=== PATIENT | male | born 1950 | race Caucasian/White ===

== ENCOUNTER 2019-11-06 06:36 | Outpatient (CLI) | payer MEDICARE, SELFPAY ==
--- NOTE | ~2019-11-06 | CT_ITS ---
EXAMINATION: CT chest wo con EXAM DATE: 11/06/2019 08:10 INDICATION: Lung nodule. TECHNIQUE: Spiral CT of the chest without contrast. Axial, coronal and sagittal images were reviewe d. Coronal maximum intensity pixel images of chest reviewed. The dose-length product (DLP) for this examination was 128.67 mGy-cm. The exposure was tailored according to patient size (auto mA exposur e control), and iterative reconstruction (ASIR) was used as additional dose reduction technique. Comp arison is made to prior examination from 10/25/2018. FINDINGS: There are 2 small nodules in the right lung, both demonstrating faint calcification consis tent with granulomas, are unchanged in size, larger measuring 6 mm. These are granulomas. There is mi ld to moderate emphysema. There are no pleural or pericardial effusions. Tracheobronchial tree is patent. There is no mediastinal, hilar or axillary lymphadenopathy. There is no pneumothorax. H eart normal in size. No evidence of coronary arterial calcification. There is 2 mm left nephrolithi asis. Upper abdomen is unremarkable. There is thoracic spondylosis without osteoblastic or osteoly tic lesions identified. Scattered splenic flexure diverticulosis. IMPRESSION: 1. Right lung granulomata unchanged. 2. Punctate left nephrolithiasis. RECOMMENDATION: screening patient and if qualifies, ordering follow-up chest LDCT lung cancer screeni ng exam in one year. Reviewed, dictated and finalized at location B. MTABLE WORKER IMPRESSION: 1. Right lung granulomata unchanged. 2. Punctate left nephrolithiasis. RECOMMENDATION: screening patient and if qualifies, ordering follow-up chest LD CT lung cancer screening exam in one year.
== END 2019-11-06 06:37 | disposition home or self-care (01) ==
PROVIDERS: PCP Internal Medicine; Visit Provider Internal Medicine
DX: R91.1 Solitary pulmonary nodule (principal); N20.0 Calculus of kidney
CPT/HCPCS: 71250

== ENCOUNTER 2019-12-04 00:30 | Day surgery (SDC) | payer MEDICARE, SELFPAY ==
[2019-11-27 14:48] VITALS: BMI 26.2
[2019-12-04 08:56] VITALS: BP 159/81; PULSE 73; RESP 16; TEMP 36.8; O2SAT 97; BMI 28.1
[2019-12-04] MEDS: LACTATED RINGERS 1,000 ML 150 ML IV CONT (09:06)
--- NOTE | 2019-12-04 09:21 | WPDANESEPPF ---
Anes - Initial Pre Proc Eval Procedure: Operation Date: 12/04/19 09:45 Proposed Procedures p Esophagogastroduodenoscopy - Jalen Pedro MD Date/Time: 12/04/19 09:21 Surgeon: Jalen Pedro MD Pre Op Diagnosis: Reflux Patient Data Age: 69 Gender: M Height: 1.7 m Weight: 81.5 kg Last Vital Signs Temp 36.8 C 12/04/19 08:56 Pulse 73 12/04/19 08:56 Resp 16 12/04/19 08:56 BP 159/81 H 12/04/19 08:56 Pulse Ox 97 12/04/19 08:56 Allergies Allergy/AdvReac Type Severity Reaction Status Date / Time No Known Allergies Allergy Mild Unverified 12/04/19 08:55 Home Medications Medication Instructions Recorded Confirmed Type aspirin 81 mg tablet,delayed 81 mg PO DAILY 08/04/19 11/27/19 History release cholecalciferol (vitamin D3) 25 1,000 unit PO DAILY 08/04/19 11/27/19 History mcg (1,000 unit) capsule rosuvastatin 10 mg tablet 10 mg PO DAILY #90 tablet 08/18/19 11/27/19 Rx lisinopril 20 mg tablet 20 mg PO DAILY #90 tablet 11/05/19 11/27/19 Rx dexlansoprazole 60 mg 60 mg PO DAILY #90 cap 11/11/19 11/27/19 Rx capsule,biphase delayed release dutasteride 0.5 mg-tamsulosin ER 1 cap PO DAILY #90 cap 11/11/19 11/27/19 Rx 0.4 mg capsule ext.release 24hr mphas hydrochlorothiazide 12.5 mg capsule 12.5 mg PO DAILY #90 cap 11/11/19 11/27/19 Rx Patient hx anesthesia problems: none Family hx anesthesia problems: none PMFSH Past Medical History Medical History (Updated 12/03/19 @ 09:51 by Kvng Slater DO) Emphysema lung Essential hypertension GERD (gastroesophageal reflux disease) Lung nodule Mixed hyperlipidemia NSAID long-term use DARYN (obstructive sleep apnea) Does not wear CPAP Surgical History Surgical History (Updated 12/03/19 @ 09:51 by Kvng Slater DO) History of appendectomy History of colon resection Social History Social History (Updated 11/27/19 @ 16:21 by Young Eduardo) Years smoked: 12 Smoking status: Former smoker Tobacco type: cigars Smoking end date: 09/24/19 Alcohol intake: current Alcohol use details: social Anes - Eval Final PreProcedure Day of Procedure 12/04/19 09:21 Patient weight: overweight Heart: regular rate and rhythm Lungs: clear to auscultation and normal air movement Airway: Mallampati scale class II Neurological: alert and oriented Last oral intake: >/= 8 hours ASA classification: III Emergent: no Anesthetic plan: proceed Anesthesia type and monitoring: general GIVS and standard monitoring Informed Consent: The patient's anesthetic plan and its attendant risks and benefits were discussed with the patient/family/POA. Questions were solicited and answers provided to the satisfaction of the patient/family/POA.
--- NOTE | 2019-12-04 09:33 | WPDHPUPDATE1 ---
History and Physical Update Update Date/Time: 12/04/19 09:33 History and Physical has been reviewed, including an updated exam of the patient. There are NO changes in the patient's condition. Risks, benefits, and alternatives have been discussed and questions answered. Patient agrees to proceed with procedure.
[2019-12-04 09:54] VITALS: BP 110/71; PULSE 71; RESP 18; O2SAT 94
[2019-12-04 10:04] VITALS: BP 122/83; PULSE 68; RESP 14; O2SAT 99
[2019-12-04 10:14] VITALS: BP 117/80; PULSE 67; RESP 18; O2SAT 100
== END 2019-12-04 10:17 | disposition home or self-care (01) ==
PROVIDERS: PCP Internal Medicine; Visit Provider Internal Medicine Gastroenterology
PROC: 0DJ08ZZ Inspection of Upper Intestinal Tract, Via Natural or Artificial Opening Endoscopic (ICD-10-PCS; CPT 43235; principal; 2019-12-04 09:45)
DX: K21.9 Gastro-esophageal reflux disease without esophagitis (principal); K29.50 Unspecified chronic gastritis without bleeding; I10 Essential (primary) hypertension; E78.2 Mixed hyperlipidemia; G47.33 Obstructive sleep apnea (adult) (pediatric); J43.9 Emphysema, unspecified; R91.1 Solitary pulmonary nodule; Z79.82 Long term (current) use of aspirin; Z79.1 Long term (current) use of non-steroidal anti-inflammatories (NSAID); Z87.891 Personal history of nicotine dependence; Z90.49 Acquired absence of other specified parts of digestive tract
CPT/HCPCS: 43239; 88305; J2704; J7120

== ENCOUNTER 2020-04-08 07:13 | Outpatient (CLI) | payer MEDICARE, SELFPAY ==
[2020-04-08 07:39] LABS: Alanine Aminotransferase 21 U/L (4-50); Albumin Level 4.4 g/dL (3.5-5.1); Alkaline Phosphatase 59 U/L (38-126); Aspartate Amino Transferase 26 U/L (17-59); Bilirubin,Total 0.5 mg/dL (0.2-1.3); Blood Urea Nitrogen 17 mg/dL (9-20); Carbon Dioxide 28 mmol/L (22-30); Chloride 98 mmol/L (98-107); Estimated Glomerular Filt Rate > 60; Glucose 116 mg/dL (75-110); Sodium 136 mmol/L (137-145)
== END 2020-04-08 07:14 | disposition home or self-care (01) ==
PROVIDERS: PCP Internal Medicine; Visit Provider Internal Medicine
DX: I10 Essential (primary) hypertension (principal)
CPT/HCPCS: 36415; 80053

== ENCOUNTER 2020-04-09 06:55 | Outpatient (CLI) | payer MEDICARE, SELFPAY ==
[2020-04-09 07:35] LABS: Hemoglobin A1C 5.6 % (<5.7)
== END 2020-04-09 06:56 | disposition home or self-care (01) ==
PROVIDERS: PCP Internal Medicine; Visit Provider Internal Medicine
DX: R73.01 Impaired fasting glucose (principal)
CPT/HCPCS: 36415; 83036

== ENCOUNTER 2020-04-12 08:29 | Outpatient (CLI) | payer MEDICARE, SELFPAY ==
[2020-04-12 08:49] LABS: Basophils Absolute Auto 0.1 K/mm3 (0.0-0.1); Basophils Percent Auto 0.8 % (0.2-1.2); Eosinophils Absolute Auto 0.3 K/mm3 (0-0.3); Eosinophils Percent Auto 2.6 % (0-4.4); Hematocrit 39.7 % (42.0-52.0); Hemoglobin 13.8 g/dL (14.0-18.0); Immature Granulocyte Absolute 0.03 K/mm3 (0.00-0.031); Immature Granulocyte Percent A 0.3 % (0-0.5); Lymphocytes Percent Auto 13.1 % (18.3-44.2); Mean Corpuscular HGB Conc 34.8 g/dl (32-36); Mean Corpuscular Hemoglobin 32.2 pg (26-34); Mean Corpuscular Volume 92.5 fl (80-100); Mean Platelet Volume 8.5 fl (7.4-10.4); Monocytes Absolute Auto 0.7 K/mm3 (0.1-0.6); Monocytes Percent Auto 7.5 % (2.6-8.5); Neutrophils Absolute Auto 7.5 K/mm3 (1.3-6.7); Neutrophils Percent Auto 75.7 % (45.5-73.1); Platelet Count Result 332 k/mm3 (150-375); Red Blood Count 4.29 M/mm3 (4.6-6.20); Red Cell Distribution Width 12.9 % (11.5-14.5); White Blood Count 9.9 K/mm3 (4.5-10.0)
[2020-04-12 09:00] LABS: Cholesterol 159 mg/dL (0-200); HDL Direct 57 mg/dL; Triglycerides 175 mg/dL (<150)
[2020-04-12 09:12] LABS: LDL Cholesterol Direct 72 mg/dL
== END 2020-04-12 08:30 | disposition home or self-care (01) ==
LOC: ANHLAB 08:30
PROVIDERS: PCP Internal Medicine; Visit Provider Internal Medicine
DX: Z12.5 Encounter for screening for malignant neoplasm of prostate (principal); I10 Essential (primary) hypertension; E78.2 Mixed hyperlipidemia
CPT/HCPCS: 36415; 80061; 84153; 84443; 85025; G0103

== ENCOUNTER 2020-10-15 09:22 | Outpatient (CLI) | payer MEDICARE, SELFPAY ==
[2020-10-15 09:43] LABS: Hematocrit 42.8 % (42.0-52.0); Hemoglobin 14.5 g/dL (14.0-18.0); Mean Corpuscular HGB Conc 33.9 g/dl (32-36); Mean Corpuscular Hemoglobin 32.6 pg (26-34); Mean Corpuscular Volume 96.2 fl (80-100); Mean Platelet Volume 8.4 fl (7.4-10.4); Platelet Count Result 317 k/mm3 (150-375); Red Blood Count 4.45 M/mm3 (4.6-6.20); Red Cell Distribution Width 13.6 % (11.5-14.5)
[2020-10-15 10:00] LABS: Hemoglobin A1C 5.4 % (<5.7)
[2020-10-15 10:04] LABS: Alanine Aminotransferase 17 U/L (4-50); Albumin Level 4.3 g/dL (3.5-5.1); Alkaline Phosphatase 52 U/L (38-126); Anion Gap 9 mmol/L (8-16); Aspartate Amino Transferase 22 U/L (17-59); Bilirubin,Total 0.7 mg/dL (0.2-1.3); Blood Urea Nitrogen 16 mg/dL (9-20); Calcium 10.1 mg/dL (8.4-10.2); Carbon Dioxide 30 mmol/L (22-30); Chloride 100 mmol/L (98-107); Cholesterol 144 mg/dL (0-200); Estimated Glomerular Filt Rate > 60; Glucose 113 mg/dL (75-110); HDL Direct 53 mg/dL; Potassium 3.8 mmol/L (3.4-5.0); Sodium 139 mmol/L (137-145); Triglycerides 135 mg/dL (<150)
[2020-10-15 10:14] LABS: LDL Cholesterol Direct 64 mg/dL
[2020-10-15 10:28] LABS: Creatinine Urine 177.9 mg/dL
[2020-10-15 10:42] LABS: MALB Creatinine Ratio 4.2 mg/g (0-30); Microalbumin Urine Random 7.5 mg/L (0-16.7)
[2020-10-15 11:09] LABS: Vitamin D 25 Hydroxy 60.3 ng/mL
== END 2020-10-15 09:23 | disposition home or self-care (01) ==
PROVIDERS: Family Provider Internal Medicine; PCP Internal Medicine; Visit Provider Internal Medicine
DX: E55.9 Vitamin D deficiency, unspecified (principal); E78.2 Mixed hyperlipidemia; I10 Essential (primary) hypertension; R73.01 Impaired fasting glucose
CPT/HCPCS: 36415; 80053; 80061; 82043; 82306; 83036; 85027

== ENCOUNTER 2020-10-25 07:12 | Outpatient (CLI) | payer MEDICARE, SELFPAY ==
--- NOTE | ~2020-10-25 | CT_ITS ---
EXAMINATION: CT diagnostic chest wo con DATE: 10/25/2020 07:28 INDICATION: Lung nodules TECHNIQUE: Computed tomography (CT) of the chest was performed without intravenous contrast. Automate d exposure control and iterative reconstruction technique were employed. Exam dose: 115.83 mGy-cm to shivam exam DLP. COMPARISON: November 06, 2019 CT chest FINDINGS: Stable pleural-based posterior right upper lung approximately 6 mm nodular density with isabel cification, consistent with old pulmonary granuloma (series 4 image 29). 6 mm calcified right lower lobe pulmonary granuloma (series 4 image 81). No pulmonary infiltrate or consolidation or pulmonary mass lesion is noted otherwise. There is thoracic aortic arch and to a lesser extent descending thoracic aortic calcification. No tho racic aortic aneurysm. No hilar or mediastinal mass lesion or lymphadenopathy. Normal heart size. No pericardial or pleural effusion. Stable chronic hypoattenuating area of the spleen, unchanged since November 06, 2019. Diverticulosis of the colon. IMPRESSION: Stable right old pulmonary granulomatous disease Reviewed, dictated and finalized at Location A. Reviewed, dictated and finalized at location A. CTOR TRAFFIC AND PLANNING
== END 2020-10-25 07:13 | disposition home or self-care (01) ==
PROVIDERS: Family Provider Internal Medicine; PCP Internal Medicine; Visit Provider Internal Medicine
DX: R91.1 Solitary pulmonary nodule (principal)
CPT/HCPCS: 71250

== ENCOUNTER 2021-04-14 11:46 | Outpatient (CLI) | payer MEDICARE, SELFPAY ==
[2021-04-14 12:18] LABS: Anion Gap 13 mmol/L (8-16); Blood Urea Nitrogen 17 mg/dL (9-20); Calcium 10.1 mg/dL (8.4-10.2); Carbon Dioxide 23 mmol/L (22-30); Chloride 102 mmol/L (98-107); Estimated Glomerular Filt Rate > 60; Glucose 95 mg/dL (65-110); Potassium 3.6 mmol/L (3.4-5.0); Sodium 138 mmol/L (137-145)
[2021-04-14 12:48] LABS: Prostate Specific Antigen 2.3 ng/mL (< OR = 4.0)
== END 2021-04-14 11:47 | disposition home or self-care (01) ==
LOC: ANHLAB 11:49
PROVIDERS: PCP Internal Medicine; Visit Provider Internal Medicine
DX: N40.0 Benign prostatic hyperplasia without lower urinary tract symptoms (principal); I10 Essential (primary) hypertension; Z12.5 Encounter for screening for malignant neoplasm of prostate
CPT/HCPCS: 36415; 80048; 84153; 84443; G0103

== ENCOUNTER 2021-11-22 08:15 | Outpatient (CLI) | payer MEDICARE, SELFPAY ==
[2021-11-22 08:42] LABS: Alanine Aminotransferase 21 U/L (4-50); Albumin Level 4.7 g/dL (3.5-5.1); Alkaline Phosphatase 53 U/L (38-126); Anion Gap 8 mmol/L (8-16); Aspartate Amino Transferase 27 U/L (17-59); Bilirubin,Total 0.8 mg/dL (0.2-1.3); Blood Urea Nitrogen 11 mg/dL (9-20); Calcium 9.7 mg/dL (8.4-10.2); Carbon Dioxide 31 mmol/L (22-30); Chloride 99 mmol/L (98-107); Cholesterol 130 mg/dL (0-200); Estimated Glomerular Filt Rate > 60; Glucose 121 mg/dL (65-110); HDL Direct 52 mg/dL; Potassium 3.2 mmol/L (3.4-5.0); Sodium 138 mmol/L (137-145); Triglycerides 107 mg/dL (<150)
[2021-11-22 08:53] LABS: LDL Cholesterol Direct 51 mg/dL
[2021-11-22 08:58] LABS: Basophils Absolute Auto 0.1 K/mm3 (0.0-0.1); Basophils Percent Auto 0.8 % (0.2-1.2); Eosinophils Absolute Auto 0.1 K/mm3 (0-0.3); Eosinophils Percent Auto 1.6 % (0-4.4); Hematocrit 40.5 % (42.0-52.0); Hemoglobin 14.3 g/dL (14.0-18.0); Immature Granulocyte Absolute 0.03 K/mm3 (0.00-0.031); Immature Granulocyte Percent A 0.3 % (0-0.5); Lymphocytes Absolute Auto 1.29 K/mm3 (0.9-3.2); Lymphocytes Percent Auto 14.9 % (18.3-44.2); Mean Corpuscular HGB Conc 35.3 g/dl (32-36); Mean Corpuscular Hemoglobin 33.2 pg (26-34); Mean Platelet Volume 8.8 fl (7.4-10.4); Monocytes Absolute Auto 0.6 K/mm3 (0.1-0.6); Neutrophils Absolute Auto 6.5 K/mm3 (1.3-6.7); Neutrophils Percent Auto 75.4 % (45.5-73.1); Platelet Count Result 408 k/mm3 (150-375); Red Blood Count 4.31 M/mm3 (4.6-6.20); Red Cell Distribution Width 13.1 % (11.5-14.5); White Blood Count 8.7 K/mm3 (4.5-10.0)
[2021-11-22 09:14] LABS: Prostate Specific Antigen 3.5 ng/mL (< OR = 4.0); Thyroid Stimulating Hormone 0.939 uIU/mL (0.465-4.680)
[2021-11-22 09:30] LABS: Vitamin D 25 Hydroxy 61.2 ng/mL
== END 2021-11-22 08:16 | disposition home or self-care (01) ==
PROVIDERS: PCP Internal Medicine; Visit Provider Internal Medicine
DX: E55.9 Vitamin D deficiency, unspecified (principal); I10 Essential (primary) hypertension; E78.2 Mixed hyperlipidemia; N40.0 Benign prostatic hyperplasia without lower urinary tract symptoms; R73.01 Impaired fasting glucose; Z12.5 Encounter for screening for malignant neoplasm of prostate
CPT/HCPCS: 36415; 80053; 80061; 82306; 84153; 84443; 85025; G0103

== ENCOUNTER 2021-11-25 08:26 | Outpatient (CLI) | payer MEDICARE, SELFPAY ==
--- NOTE | 2021-11-25 08:38 | ECG_ITS ---
Measurements Intervals [place] Rate: 74 P: 53 LA: 183 QRS: -23 QRSD: 109 T: 42 QT: 396 QTc: 440 Interpretive Statements SINUS RHYTHM BORDERLINE LEFT AXIS DEVIATION [QRS AXIS < -20] BORDERLINE ECG Electronically Signed On 11-25-2021 10:34:58 INSURANCE BUSINESS ANALYST by Vinnie Burton M.D.
== END 2021-11-25 08:27 | disposition home or self-care (01) ==
PROVIDERS: PCP Internal Medicine; Visit Provider Internal Medicine
DX: I10 Essential (primary) hypertension (principal); I45.9 Conduction disorder, unspecified; R94.31 Abnormal electrocardiogram [ECG] [EKG]
CPT/HCPCS: 93005

== ENCOUNTER 2021-12-09 08:13 | Outpatient (CLI) | payer MEDICARE, SELFPAY ==
[2021-12-09 08:39] LABS: Hematocrit 40.7 % (42.0-52.0); Mean Corpuscular HGB Conc 34.4 g/dl (32-36); Mean Corpuscular Hemoglobin 32.9 pg (26-34); Mean Corpuscular Volume 95.5 fl (80-100); Mean Platelet Volume 8.5 fl (7.4-10.4); Platelet Count Result 316 k/mm3 (150-375); Red Blood Count 4.26 M/mm3 (4.6-6.20); Red Cell Distribution Width 13.1 % (11.5-14.5); White Blood Count 6.4 K/mm3 (4.5-10.0)
== END 2021-12-09 08:14 | disposition home or self-care (01) ==
LOC: ANHLAB 08:17
PROVIDERS: PCP Internal Medicine; Visit Provider Internal Medicine
DX: D75.839 Thrombocytosis, unspecified (principal); E87.6 Hypokalemia
CPT/HCPCS: 36415; 84132; 85027

== ENCOUNTER 2022-01-30 02:04 | Day surgery (SDC) | payer MEDICARE, SELFPAY ==
[2022-01-12 14:29] VITALS: BMI 26.8
[2022-01-30 08:33] VITALS: BP 152/86; PULSE 95; RESP 18; TEMP 36.1; O2SAT 95
[2022-01-30] MEDS: LACTATED RINGERS 1,000 ML 150 ML IV CONT (08:45)
--- NOTE | 2022-01-30 08:51 | WPDANESEPPF ---
Anes - Initial Pre Proc Eval Procedure: Operation Date: 01/30/22 09:30 Proposed Procedures p Screening Colonoscopy - Jalen Pedro MD Date/Time: 01/30/22 08:51 Surgeon: Jalen Pedro MD Pre Op Diagnosis: hx of colon polyps Patient Data Age: 71 Gender: M Height: 1.73 m Weight: 81.8 kg Last Vital Signs Temp 97 F L 01/30/22 08:33 Pulse 95 01/30/22 08:33 Resp 18 01/30/22 08:33 BP 152/86 H 01/30/22 08:33 Pulse Ox 95 01/30/22 08:33 Allergies Allergy/AdvReac Type Severity Reaction Status Date / Time No Known Allergies Allergy Mild Verified 01/12/22 14:27 Home Medications Medication Instructions Recorded Confirmed Type aspirin 81 mg tablet,delayed 81 mg PO DAILY 08/04/19 01/12/22 History release cholecalciferol (vitamin D3) 25 1,000 unit PO DAILY 08/04/19 01/12/22 History mcg (1,000 unit) capsule lisinopril 20 mg tablet See Rx Instructions .ROUTE 03/14/21 01/12/22 Rx .COMPLEX #90 tablet dutasteride 0.5 mg-tamsulosin ER See Rx Instructions .ROUTE 08/25/21 01/12/22 Rx 0.4 mg capsule ext.release 24hr .COMPLEX #90 cap mphas hydrochlorothiazide 12.5 mg capsule See Rx Instructions .ROUTE 08/25/21 01/12/22 Rx .COMPLEX #90 cap rosuvastatin 10 mg tablet See Rx Instructions .ROUTE 08/25/21 01/12/22 Rx .COMPLEX #90 tablet omeprazole 40 mg capsule,delayed 40 mg PO DAILY #90 cap 11/25/21 01/12/22 Rx release potassium chloride 20 mEq 20 meq PO DAILY #90 tablet 11/25/21 01/12/22 Rx tablet,extended release(part/cryst) Patient hx anesthesia problems: none Family hx anesthesia problems: none Results Review: All pre-operative results and documents have been reviewed as part of the pre-operative evaluation. [facility] Past Medical History Medical History Emphysema lung Essential hypertension GERD (gastroesophageal reflux disease) Lung nodule Mixed hyperlipidemia NSAID long-term use DARYN (obstructive sleep apnea) Does not wear CPAP Surgical History Surgical History History of appendectomy History of colon resection Family History Family History Mother Depression Family history of Alzheimer's disease Sibling Family history of arthritis Malignant neoplasm of prostate Father Family history of Alzheimer's disease Social History Social History Social History: 20 cigars a month Years smoked: 10 Smoking status: Former smoker Tobacco type: cigars Second hand tobacco smoke exposure: Yes Smoking end date: 09/24/19 Alcohol intake: current Drinks per week: 2 Alcohol use details: social Living arrangements: alone Spiritual care concerns: No Anes - Eval Final PreProcedure Day of Procedure 01/30/22 08:51 Patient weight: normal Heart: regular rate and rhythm Lungs: clear to auscultation Airway: Mallampati scale class III Neurological: alert and oriented Last oral intake: >/= 8 hours ASA classification: III Emergent: no Anesthetic plan: proceed Anesthesia type and monitoring: general GIVS and standard monitoring Results Review: All pre-operative results and documents have been reviewed as part of the pre-operative evaluation. Informed Consent: The patient's anesthetic plan and its attendant risks and benefits were discussed with the patient/family/POA. Questions were solicited and answers provided to the satisfaction of the patient/family/POA.
--- NOTE | 2022-01-30 08:58 | PM.HPGS ---
History of Present Illness History of Present Illness Consent: Risks, benefits, and alternatives have been discussed and questions answered. Patient agrees to proceed with procedure. Chief complaint: hx of colon polyps Narrative: Bert Garcia is a 71 year old male with colon polyps in 2016 Review of Systems Constitutional: Constitutional: Denies headache(s) and Denies weakness Eyes: Eyes: Denies blurry vision ENT: Reports Normal hearing present, Denies headache(s) and Denies neck pain Cardiovascular: Cardiovascular: Denies chest pain and Denies dyspnea Respiratory: Respiratory: Denies dyspnea Gastrointestinal: Gastrointestinal: Reports no additional gastrointestinal complaints Genitourinary: Genitourinary: Denies dysuria Musculoskeletal: Musculoskeletal: Denies neck pain Integumentary/Breasts: Skin/Breast: Denies dry skin Neurologic: Reports Normal hearing present, Denies headache(s) and Denies weakness Psychiatric: Psychiatric: Denies anxiety Endocrine: Endocrine: Denies change in body appearance Hematologic/Lymphatic: Hematologic/Lymphatic: Denies easy bleeding Allergic/Immunologic: Allergic/Immunologic: Denies urticaria PMFSH Past Medical History Medical History Emphysema lung Essential hypertension GERD (gastroesophageal reflux disease) Lung nodule Mixed hyperlipidemia NSAID long-term use DARYN (obstructive sleep apnea) Does not wear CPAP Surgical History Surgical History History of appendectomy History of colon resection Family History Family History Mother Depression Family history of Alzheimer's disease Sibling Family history of arthritis Malignant neoplasm of prostate Father Family history of Alzheimer's disease Social History Social History Social History: 20 cigars a month Years smoked: 10 Smoking status: Former smoker Tobacco type: cigars Second hand tobacco smoke exposure: Yes Smoking end date: 09/24/19 Alcohol intake: current Drinks per week: 2 Alcohol use details: social Living arrangements: alone Spiritual care concerns: No Meds Home Medications and Allergies Home Medications Medication Instructions Recorded Confirmed Type aspirin 81 mg tablet,delayed 81 mg PO DAILY 08/04/19 01/12/22 History release cholecalciferol (vitamin D3) 25 1,000 unit PO DAILY 08/04/19 01/12/22 History mcg (1,000 unit) capsule lisinopril 20 mg tablet See Rx Instructions .ROUTE 03/14/21 01/12/22 Rx .COMPLEX #90 tablet dutasteride 0.5 mg-tamsulosin ER See Rx Instructions .ROUTE 08/25/21 01/12/22 Rx 0.4 mg capsule ext.release 24hr .COMPLEX #90 cap mphas hydrochlorothiazide 12.5 mg capsule See Rx Instructions .ROUTE 08/25/21 01/12/22 Rx .COMPLEX #90 cap rosuvastatin 10 mg tablet See Rx Instructions .ROUTE 08/25/21 01/12/22 Rx .COMPLEX #90 tablet omeprazole 40 mg capsule,delayed 40 mg PO DAILY #90 cap 11/25/21 01/12/22 Rx release potassium chloride 20 mEq 20 meq PO DAILY #90 tablet 11/25/21 01/12/22 Rx tablet,extended release(part/cryst) Allergies Allergy/AdvReac Type Severity Reaction Status Date / Time No Known Allergies Allergy Mild Verified 01/12/22 14:27 Vital Signs Vital Signs - 24 hr 01/30/22 08:33 Temperature 97 F L Pulse Rate 95 Respiratory Rate 18 Blood Pressure 152/86 H Pulse Oximetry 95 Exam Const: General: comfortable and no acute distress HENMT: General nose exam: Normal nares present Eyes: General: appearance normal, both eyes and all related structures Neck: Neck: no JVD Resp: Auscultation: clear to auscultation bilaterally Cardio: Rate: regular rate Rhythm: regular rhythm GI: Inspection: non-distended GI Palp: Yes Soft to palpation Skin: General
[2022-01-30 09:10] VITALS: BP 109/73; PULSE 83; RESP 16; O2SAT 97
[2022-01-30 09:20] VITALS: BP 118/76; PULSE 71; RESP 16; O2SAT 97
[2022-01-30 09:25] VITALS: BP 121/83; PULSE 67; RESP 16; O2SAT 98
== END 2022-01-30 09:35 | disposition home or self-care (01) ==
PROVIDERS: PCP Internal Medicine; Visit Provider Internal Medicine Gastroenterology
PROC: 0DJD8ZZ Inspection of Lower Intestinal Tract, Via Natural or Artificial Opening Endoscopic (ICD-10-PCS; CPT 45378; principal; 2022-01-30 09:30)
DX: Z12.11 Encounter for screening for malignant neoplasm of colon (principal); D12.2 Benign neoplasm of ascending colon; K57.30 Diverticulosis of large intestine without perforation or abscess without bleeding; K21.9 Gastro-esophageal reflux disease without esophagitis; K64.9 Unspecified hemorrhoids; J43.9 Emphysema, unspecified; I10 Essential (primary) hypertension; E78.2 Mixed hyperlipidemia; R91.1 Solitary pulmonary nodule; G47.33 Obstructive sleep apnea (adult) (pediatric); Z79.1 Long term (current) use of non-steroidal anti-inflammatories (NSAID); Z87.891 Personal history of nicotine dependence; Z90.49 Acquired absence of other specified parts of digestive tract
CPT/HCPCS: 45385; 88305; J2704; J7120

== ENCOUNTER 2022-06-06 07:40 | Outpatient (CLI) | payer MEDICARE, SELFPAY ==
[2022-06-06 08:09] LABS: Alanine Aminotransferase 17 U/L (6-50); Albumin Level 4.7 g/dL (3.5-5.1); Alkaline Phosphatase 55 U/L (38-126); Anion Gap 15 mmol/L (8-16); Aspartate Amino Transferase 22 U/L (17-59); Bilirubin,Total 0.9 mg/dL (0.2-1.3); Blood Urea Nitrogen 13 mg/dL (9-20); Calcium 9.6 mg/dL (8.4-10.2); Carbon Dioxide 28 mmol/L (22-30); Chloride 97 mmol/L (98-107); Cholesterol 145 mg/dL (0-200); Estimated Glomerular Filt Rate > 60; Glucose 118 mg/dL (65-110); HDL Direct 44 mg/dL; Potassium 2.9 mmol/L (3.4-5.0); Sodium 140 mmol/L (137-145); Triglycerides 130 mg/dL (<150)
[2022-06-06 08:20] LABS: LDL Cholesterol Direct 60 mg/dL
== END 2022-06-06 07:41 | disposition home or self-care (01) ==
LOC: ANHLAB 07:41
PROVIDERS: PCP Internal Medicine; Visit Provider Nurse Practitioner
DX: E78.5 Hyperlipidemia, unspecified (principal); E55.9 Vitamin D deficiency, unspecified
CPT/HCPCS: 36415; 80053; 80061; 82306

== ENCOUNTER 2022-12-11 08:20 | Outpatient (CLI) | payer MEDICARE, SELFPAY ==
[2022-12-11 09:24] LABS: Alanine Aminotransferase 18 U/L (6-50); Albumin Level 4.8 g/dL (3.5-5.1); Alkaline Phosphatase 61 U/L (38-126); Anion Gap 6 mmol/L (8-16); Aspartate Amino Transferase 22 U/L (17-59); Bilirubin,Total 0.6 mg/dL (0.2-1.3); Blood Urea Nitrogen 11 mg/dL (9-20); Calcium 9.6 mg/dL (8.4-10.2); Carbon Dioxide 28 mmol/L (22-30); Chloride 100 mmol/L (98-107); Cholesterol 169 mg/dL (0-200); Estimated Glomerular Filt Rate > 60; Glucose 113 mg/dL (65-110); HDL Direct 59 mg/dL; Potassium 4.1 mmol/L (3.4-5.0); Sodium 134 mmol/L (137-145); Triglycerides 174 mg/dL (<150)
[2022-12-11 09:35] LABS: LDL Cholesterol Direct 79 mg/dL
[2022-12-11 09:49] LABS: Hemoglobin A1C 5.5 % (<5.7)
== END 2022-12-11 08:21 | disposition home or self-care (01) ==
PROVIDERS: PCP Nurse Practitioner; Visit Provider Nurse Practitioner
DX: E78.5 Hyperlipidemia, unspecified (principal); R73.9 Hyperglycemia, unspecified
CPT/HCPCS: 36415; 80053; 80061; 83036

== ENCOUNTER 2023-06-25 08:58 | Outpatient (CLI) | payer MEDICARE, SELFPAY ==
[2023-06-25 09:18] LABS: Hematocrit 41.3 % (42.0-52.0); Hemoglobin 13.8 g/dL (14.0-18.0); Mean Corpuscular HGB Conc 33.4 g/dl (32-36); Mean Corpuscular Hemoglobin 30.1 pg (26-34); Mean Platelet Volume 8.1 fl (7.4-10.4); Platelet Count Result 352 k/mm3 (150-375); Red Blood Count 4.59 M/mm3 (4.6-6.20); Red Cell Distribution Width 13.3 % (11.5-14.5); White Blood Count 7.7 K/mm3 (4.5-10.0)
[2023-06-25 09:27] LABS: Alanine Aminotransferase 20 U/L (6-50); Albumin Level 4.7 g/dL (3.5-5.1); Alkaline Phosphatase 58 U/L (38-126); Anion Gap 9 mmol/L (8-16); Aspartate Amino Transferase 24 U/L (17-59); Bilirubin,Total 0.8 mg/dL (0.2-1.3); Blood Urea Nitrogen 10 mg/dL (9-20); Calcium 9.7 mg/dL (8.4-10.2); Carbon Dioxide 25 mmol/L (22-30); Chloride 97 mmol/L (98-107); Cholesterol 154 mg/dL (0-200); Estimated Glomerular Filt Rate > 60; Glucose 112 mg/dL (65-110); HDL Direct 61 mg/dL; Potassium 4.2 mmol/L (3.4-5.0); Sodium 131 mmol/L (137-145); Triglycerides 147 mg/dL (<150)
[2023-06-25 09:38] LABS: LDL Cholesterol Direct 65 mg/dL
[2023-06-25 10:51] LABS: Hemoglobin A1C 5.4 % (<5.7)
[2023-06-25 10:57] LABS: Vitamin D 25 Hydroxy 70.2 ng/mL
== END 2023-06-25 08:59 | disposition home or self-care (01) ==
PROVIDERS: PCP Nurse Practitioner; Visit Provider Family Medicine
DX: E55.9 Vitamin D deficiency, unspecified (principal); E78.2 Mixed hyperlipidemia; E87.6 Hypokalemia; I10 Essential (primary) hypertension; I45.9 Conduction disorder, unspecified; K21.9 Gastro-esophageal reflux disease without esophagitis; N40.0 Benign prostatic hyperplasia without lower urinary tract symptoms; R73.01 Impaired fasting glucose; R73.9 Hyperglycemia, unspecified; R91.1 Solitary pulmonary nodule; E78.5 Hyperlipidemia, unspecified
CPT/HCPCS: 36415; 80053; 80061; 82306; 83036; 85027

== ENCOUNTER 2024-01-07 09:00 | Outpatient (CLI) | payer MEDICARE, SELFPAY ==
[2024-01-07 10:11] LABS: Alanine Aminotransferase 19 U/L (6-50); Albumin Level 4.8 g/dL (3.5-5.1); Alkaline Phosphatase 66 U/L (38-126); Anion Gap 8 mmol/L (4-12); Aspartate Amino Transferase 27 U/L (17-59); Blood Urea Nitrogen 9 mg/dL (9-20); Calcium 10.3 mg/dL (8.4-10.2); Carbon Dioxide 27 mmol/L (22-30); Chloride 100 mmol/L (98-107); Cholesterol 162 mg/dL (0-200); Estimated Glomerular Filt Rate > 60; Glucose 112 mg/dL (65-110); HDL Direct 71 mg/dL; Potassium 4.1 mmol/L (3.4-5.0); Sodium 135 mmol/L (137-145); Triglycerides 216 mg/dL (<150)
[2024-01-07 10:21] LABS: LDL Cholesterol Direct 69 mg/dL
== END 2024-01-07 09:01 | disposition home or self-care (01) ==
LOC: ANHLAB 09:03
PROVIDERS: PCP Nurse Practitioner; Visit Provider Nurse Practitioner
DX: E78.5 Hyperlipidemia, unspecified (principal)
CPT/HCPCS: 36415; 80053; 80061

== ENCOUNTER 2024-02-25 07:48 | Outpatient (CLI) | payer MEDICARE, SELFPAY | END 2024-02-25 07:49 | disposition home or self-care (01) | LOC: ANHAUDIO 07:49 | PROVIDERS: PCP Nurse Practitioner; Visit Provider Nurse Practitioner | DX: H91.90 Unspecified hearing loss, unspecified ear (principal); Z96.22 Myringotomy tube(s) status | CPT/HCPCS: 99199 ==

== ENCOUNTER 2024-06-30 10:19 | Outpatient (CLI) | payer MEDICARE, SELFPAY | END 2024-06-30 10:20 | disposition home or self-care (01) | LOC: ANHAUDIO 10:21 | PROVIDERS: PCP Nurse Practitioner; Visit Provider Otolaryngology | DX: H72.92 Unspecified perforation of tympanic membrane, left ear (principal); H90.41 Sensorineural hearing loss, unilateral, right ear, with unrestricted hearing on the contralateral side; H90.72 Mixed conductive and sensorineural hearing loss, unilateral, left ear, with unrestricted hearing on the contralateral side | CPT/HCPCS: 92557; 92567 ==

== ENCOUNTER 2024-07-11 08:27 | Outpatient (CLI) | payer MEDICARE, SELFPAY ==
[2024-07-11 09:19] LABS: Alanine Aminotransferase 16 U/L (6-50); Albumin Level 4.5 g/dL (3.5-5.1); Alkaline Phosphatase 52 U/L (38-126); Anion Gap 9 mmol/L (4-12); Aspartate Amino Transferase 30 U/L (17-59); Bilirubin,Total 1.3 mg/dL (0.2-1.3); Blood Urea Nitrogen 8 mg/dL (9-20); Carbon Dioxide 27 mmol/L (22-30); Chloride 96 mmol/L (98-107); Cholesterol 161 mg/dL (0-200); Estimated Glomerular Filt Rate > 60; Glucose 109 mg/dL (65-110); HDL Direct 80 mg/dL; Sodium 132 mmol/L (137-145); Triglycerides 154 mg/dL (<150)
[2024-07-11 09:30] LABS: LDL Cholesterol Direct 51 mg/dL
[2024-07-11 09:36] LABS: Hemoglobin A1C 5.6 % (<5.7)
== END 2024-07-11 08:28 | disposition home or self-care (01) ==
PROVIDERS: PCP Nurse Practitioner; Visit Provider Nurse Practitioner
DX: E78.5 Hyperlipidemia, unspecified (principal); R73.01 Impaired fasting glucose
CPT/HCPCS: 36415; 80053; 80061; 83036

== ENCOUNTER 2025-01-15 09:01 | Outpatient (CLI) | payer MEDICARE, SELFPAY ==
[2025-01-15 09:22] LABS: Hematocrit 36.8 % (42.0-52.0); Hemoglobin 12.3 g/dL (14.0-18.0); Mean Corpuscular HGB Conc 33.4 g/dl (32-36); Mean Corpuscular Hemoglobin 29.6 pg (26-34); Mean Corpuscular Volume 88.5 fl (80-100); Mean Platelet Volume 8.3 fl (7.4-10.4); Platelet Count Result 317 k/mm3 (150-375); Red Blood Count 4.16 M/mm3 (4.6-6.20); Red Cell Distribution Width 13.2 % (11.5-14.5)
[2025-01-15 09:35] LABS: Alanine Aminotransferase 18 U/L (6-50); Albumin Level 4.4 g/dL (3.5-5.1); Alkaline Phosphatase 55 U/L (38-126); Anion Gap 11 mmol/L (4-12); Aspartate Amino Transferase 23 U/L (17-59); Bilirubin,Total 0.9 mg/dL (0.2-1.3); Blood Urea Nitrogen 12 mg/dL (9-20); Calcium 9.5 mg/dL (8.4-10.2); Carbon Dioxide 26 mmol/L (22-30); Chloride 96 mmol/L (98-107); Cholesterol 158 mg/dL (0-200); Estimated Glomerular Filt Rate > 60; Glucose 110 mg/dL (65-110); HDL Direct 74 mg/dL; Potassium 3.4 mmol/L (3.4-5.0); Sodium 133 mmol/L (137-145); Triglycerides 180 mg/dL (<150)
--- OUTSIDE RECORDS SUMMARY | 2025-01-15 09:40 | XMS_ITS | Continuity of Care Document ---
Author Organization [facility] Address [address] [place] [address] Phone Care Team Providers Care Fitter Machinist Name Role Phone Pierre Velasquez Unavailable Unavailable Procedures Procedure Date Eye Exam Established Pt Ophthalmoscopy, Subsequent Eye Exam & Treatment Ophthalmoscopy, Subsequent Eye Exam Established Pt Advance Directives Directive Yes / No Effective Date File Name No Information Encounters Encounter Description Practice Location Reason(s) For Visit Diagnoses Date Provider Providers Copied on Encounter [facility], [address] [place] [address] [address], [place], [place], [id number], [place] tel:[phone] SEC [facility] No Information 2-201 0 Ron Jay. [address] [place], [address], [place]. tel:[phone] Referring Provider: Pierre Harrington, [address] [place], [address]. tel:[phone] [facility], [address] [place] [address] [address], [place], [place], [id number], [place] tel:[phone] SEC [facility] No Information 7-201 0 Ron Jay. [address] [place], [address], [place]. tel:[phone] Referring Provider: Bright Edmond OD A, [address], [place], [address]. tel:[phone] [facility], [address], [place], [place], [id number], [place] tel:[phone] SEC [facility] No Information 0 6-201 0 Edmond OD Bright. [address], [place], [address], [place]. tel:[phone] Referring Provider: Preet Hinkle [facility], [place], [address]. tel:[phone] Family History Family Member Type Diagnosis Age [...]
[2025-01-15 09:42] LABS: Hemoglobin A1C 5.5 % (<5.7)
[2025-01-15 09:51] LABS: LDL Cholesterol Direct 53 mg/dL
[2025-01-15 09:54] LABS: Vitamin D 25 Hydroxy 73.9 ng/mL
== END 2025-01-15 09:02 | disposition home or self-care (01) ==
PROVIDERS: PCP Nurse Practitioner; Visit Provider Nurse Practitioner
DX: E55.9 Vitamin D deficiency, unspecified (principal); E78.5 Hyperlipidemia, unspecified; R73.9 Hyperglycemia, unspecified; I10 Essential (primary) hypertension
CPT/HCPCS: 36415; 80053; 80061; 82306; 83036; 85027

== ENCOUNTER 2025-03-10 11:33 | Outpatient (CLI) | payer MEDICARE, SELFPAY ==
[2025-03-10 12:04] LABS: Hematocrit 36.2 % (42.0-52.0); Hemoglobin 12.1 g/dL (14.0-18.0); Mean Corpuscular HGB Conc 33.4 g/dl (32-36); Mean Corpuscular Hemoglobin 29.5 pg (26-34); Mean Corpuscular Volume 88.3 fl (80-100); Mean Platelet Volume 8.4 fl (7.4-10.4); Platelet Count Result 319 k/mm3 (150-375); Red Cell Distribution Width 13.3 % (11.5-14.5); White Blood Count 9.3 K/mm3 (4.5-10.0)
--- OUTSIDE RECORDS SUMMARY | 2025-03-10 12:34 | XMS_ITS | Continuity of Care Document ---
Author Organization [facility] Address [address] [place] [address] Phone Care Team Providers Care Admiralty Lawyer Name Role Phone Pierre Velasquez Unavailable Unavailable Procedures Procedure Date Eye Exam Established Pt Ophthalmoscopy, Subsequent Eye Exam & Treatment Ophthalmoscopy, Subsequent Eye Exam Established Pt Advance Directives Directive Yes / No Effective Date File Name No Information Encounters Encounter Description Practice Location Reason(s) For Visit Diagnoses Date Provider Providers Copied on Encounter [facility], [address] [place] [address] [address], [place], [place], [id number], [place] tel:[phone] SEC [facility] No Information 2-201 0 Ron Jay. [address] [place], [address], [place]. tel:[phone] Referring Provider: Pierre Harrington, [address] [place], [address]. tel:[phone] [facility], [address] [place] [address] [address], [place], [place], [id number], [place] tel:[phone] SEC [facility] No Information 7-201 0 Ron Jay. [address] [place], [address], [place]. tel:[phone] Referring Provider: Bright Edmond OD A, [address], [place], [address]. tel:[phone] [facility], [address], [place], [place], [id number], [place] tel:[phone] SEC [facility] No Information 0 6-201 0 Edmond OD Bright. [address], [place], [address], [place]. tel:[phone] Referring Provider: Preet Hinkle [facility], [place], [address]. tel:[phone] Family History Family Member Type Diagnosis Age At Onset No Information Payers Payer name Insurance type Covered democrat ID Authoriza tion(s) No Information Social History [...]
== END 2025-03-10 11:34 | disposition home or self-care (01) ==
PROVIDERS: PCP Nurse Practitioner; Visit Provider Nurse Practitioner
DX: D64.9 Anemia, unspecified (principal)
CPT/HCPCS: 36415; 85027

== ENCOUNTER 2025-07-06 08:25 | Outpatient (CLI) | payer MEDICARE, SELFPAY ==
[2025-07-06 09:50] LABS: Hematocrit 39.4 % (42.0-52.0); Hemoglobin 12.9 g/dL (14.0-18.0); Mean Corpuscular HGB Conc 32.7 g/dl (32-36); Mean Corpuscular Hemoglobin 28.7 pg (26-34); Mean Corpuscular Volume 87.6 fl (80-100); Platelet Count Result 352 k/mm3 (150-375); Red Blood Count 4.50 M/mm3 (4.6-6.20); White Blood Count 6.7 K/mm3 (4.5-10.0)
[2025-07-06 09:58] LABS: Hemoglobin A1C 5.1 % (<5.7)
[2025-07-06 11:02] LABS: Alanine Aminotransferase 15 U/L (6-50); Albumin Level 4.3 g/dL (3.5-5.1); Alkaline Phosphatase 65 U/L (38-126); Anion Gap 11 mmol/L (4-12); Aspartate Amino Transferase 33 U/L (17-59); Bilirubin,Total 1.4 mg/dL (0.2-1.3); Blood Urea Nitrogen 9 mg/dL (9-20); Calcium 9.1 mg/dL (8.4-10.2); Carbon Dioxide 35 mmol/L (22-30); Chloride 92 mmol/L (98-107); Cholesterol 154 mg/dL (0-200); Estimated Glomerular Filt Rate > 60; Glucose 119 mg/dL (65-110); HDL Direct 61 mg/dL; Potassium < 2.0 mmol/L (3.4-5.0); Sodium 138 mmol/L (137-145); Total Protein 7.6 g/dL (6.3-8.2); Triglycerides 189 mg/dL (<150)
== END 2025-07-06 08:26 | disposition home or self-care (01) ==
LOC: ANHLAB 08:28
PROVIDERS: PCP Nurse Practitioner; Visit Provider Nurse Practitioner
DX: R73.01 Impaired fasting glucose (principal); E78.5 Hyperlipidemia, unspecified; K21.9 Gastro-esophageal reflux disease without esophagitis
CPT/HCPCS: 36415; 80053; 80061; 83036; 85027

== ENCOUNTER 2025-07-06 15:10 | Inpatient (IN) | payer MEDICARE, SELFPAY ==
[2025-07-06] VITALS (7 sets, daily range): BP systolic 135–174; BP diastolic 83–89; PULSE 71–86; RESP 15–18; TEMP 36–36.8; O2SAT 93–98; BMI 24.9
--- NOTE | ~2025-07-06 | CT_ITS ---
EXAMINATION: CT brain wo con DATE: 07/06/2025 16:24 INDICATION: Persistent right-sided headaches TECHNIQUE: Computed tomography (CT) of the head was performed without intravenous contrast. Sagittal and coronal reconstructions were performed. The mA was adjusted according to patient size. Iterative reconstruction technique was employed. The dose-length product was 681.00 mGy-cm. COMPARISON: head CT dated 01/03/2013 FINDINGS: Unchanged small old lacunar infarct in the right frontoparietal abraham radiata. No acute intracranial hemorrhage, acute infarction or abnormal extra axial fluid collection. There is mild scattered white matter hypoattenuation consistent with chronic small vessel ischemic disease. Symmetric prominence of the sulci consistent with mild age-appropriate diffuse cerebral volume loss. Ventricles are normal and symmetric. No mass/mass effect. Changes of bilateral intraocular lens replacement. The orbits and mastoid air cells are normal. Mild mucosal thickening in the bilateral ethmoid and maxillary sinuses. Chronic leftward deviation of the nasal septum. IMPRESSION: 1. Unchanged small old lacunar infarct in the right frontoparietal abraham radiata. No acute intracranial process. 2. Age-related changes including mild diffuse volume loss and mild scattered white matter hypoattenuation consistent with chronic small vessel ischemic disease. Reviewed, dictated and finalized at location A. IMPRESSION: 1. Unchanged small old lacunar infarct in the right frontoparietal abraham radia ta. No acute intracranial process. 2. Age-related changes including mild diffuse volume loss and mild scattered wh ite matter hypoattenuation consistent with chronic small vessel ischemic diseas e.
--- NOTE | 2025-07-06 15:51 | ECG_ITS ---
Test Date: 2025-07-06 15:54:15 Measurements Intervals [place] Rate: 76 P: 17 [place]: 185 QRS: -31 QRSD: 97 T: 38 QT: 405 QTc: 458 Interpretive Statements SINUS RHYTHM LEFT AXIS DEVIATION INCOMPLETE RIGHT BUNDLE BRANCH BLOCK BASELINE ARTIFACT- I, II, III, AVR, AVL, AVF, V1-V6 BORDERLINE ECG No previous ECG available for comparison Electronically Signed On 07-06-2025 16:30:21 CDT by Laith Kam D.O.
--- OUTSIDE RECORDS SUMMARY | 2025-07-06 15:55 | XMS_ITS | Patient Health Record ---
Author Organization [facility] Address [address] [facility] [address] [place] [address] Care Team Providers Care Oem Sales Manager Name Role Phone Alberto Burnett Unavailable [phone] Reason For Referral No Information Plan Of Treatment No Information
--- NOTE | 2025-07-06 16:02 | ED.RECABL ---
HPI - Recheck/Abnormal Lab/Rx General Chief Complaint: Recheck/Abnormal Lab/Rx <JORGE Barker Last Filed: 07/06/25 16:11> Stated Complaint: abnormal lab - low potassium 1.9 <JORGE Barker Last Filed: 07/06/25 16:11> Time Seen by Provider: 07/06/25 16:02 <JORGE Barker Last Filed: 07/06/25 16:11> Focused HPI: Patient is a 74-year-old male who presents the ED with report of abnormal outpatient labs. Patient reports he had routine labs performed today for an upcoming PCP appointment. He was notified by his PCP that his potassium was 1.9 and to come to the ED for further evaluation. Patient denies history of low potassium. I do see record of him being on potassium supplementation in the past, but states he is not currently on this. He is on omeprazole and hydrochlorothiazide. Patient states he feels fine currently. He does c/o slight R sided BACK, which has been ongoing for some time. States this occurs mostly in the mornings. Denies muscle pain, cramping, numbness/tingling, dizziness/lightheadedness. GENERAL: Well-appearing, well-nourished, and in no acute distress. HEAD: Normocephalic, atraumatic. CHEST: Clear to auscultation. ?No respiratory distress. HEART: Regular rate and rhythm.? NEURO: ?Alert and oriented x3. Patient screened in triage and initial orders placed.? ?Additional care and disposition to be based upon?diagnostic testing and treatment. <Temitope Avila PA-C - Last Filed: 07/06/25 16:11> Source: patient <JORGE Barker Last Filed: 07/06/25 16:11> Mode of arrival: ambulatory <JORGE Barker Last Filed: 07/06/25 16:11> Limitations: no limitations <JORGE Barker Last Filed: 07/06/25 16:11> History of Present Illness HPI narrative: Agree with HPI <Jovanny Jerome MD - Last Filed: 07/06/25 21:53> Related Data Home Medications: Home Medications ?Medication ?Instructions ?Recorded ?Confirmed ?Last Taken ?Type aspirin 81 mg tablet,delayed 81 mg PO DAILY 08/04/19 01/15/25 12/03/19 History release cholecalciferol (vitamin D3) 25 1,000 unit PO DAILY 08/04/19 01/15/25 12/03/19 History mcg (1,000 unit) capsule multivitamin 1 tablet PO DAILY 06/23/24 01/15/25 Unknown History <Temitope Avila PA-C - Last Filed: 07/06/25 16:11> Allergies/Adverse Reactions: Allergies Allergy/AdvReac Type Severity Reaction Status Date / Time No Known Allergies Allergy Mild Verified 07/06/25 21:51 <Temitope Avila PA-C - Last Filed: 07/06/25 16:11> Review of Systems Review of Systems: All systems reviewed & are unremarkable except as noted in HPI and below <Jovanny Jerome MD - Last Filed: 07/06/25 21:53> Constitutional: Constitutional: Reports no additional constitutional complaints <Jovanny Jerome MD - Last Filed: 07/06/25 21:53> Cardiovascular: Cardiovascular: Reports no additional cardiovascular complaints <Jovanny Jerome MD - Last Filed: 07/06/25 21:53> Respiratory: Respiratory: Reports no additional respiratory complaints <Jovanny Jerome MD - Last Filed: 07/06/25 21:53> Gastrointestinal: Gastrointestinal: Reports no additional gastrointestinal complaints <Jovanny Jerome MD - Last Filed: 07/06/25 21:53> Musculoskeletal: Musculoskeletal: Reports no additional musculoskeletal complaints <Jovanny Jerome MD - Last Filed: 07/06/25 21:53> [facility] Past Medical History Medical History: Medical History Emphysema lung DARYN (obstructive sleep apnea) Does not wear CPAP NSAID long-term use GERD (gastroesophageal reflux disease) Lung nodule Mixed hyperlipidemia Essential hypertension <JORGE Barker Last Filed: 07/06/25 16:11> Surgical History Surgical History: Surgical History History of colon resection History of appendectomy <Temitope Avila PA-C - Last Filed: 07/06/25 16:11> Family History Family History: Family History Mother Depression Family history of Alzheimer's disease Sibling Family history of arthritis Malignant neoplasm of prostate Father Family history of Alzheimer's disease <Temitope Avila PA-C - Last Filed: 07/06/25 16:11> Social History Social History: Social History Social History: Caffeine-coffee/tea Years smoked: 10 Smoking status: Former smoker Tobacco type: cigars Second hand tobacco smoke exposure: Yes Smoking end date: 09/24/19 Alcohol intake: current Drinks per week: 2 Alcohol use details: social Substance use: never Substance use type: does not use Lack of Transportation: No Lack of Food: Sometimes True Current Housing: I Have Housing Concerned About Future Housing: No Difficulty Paying Gas/Electric Bills: No Difficulty Paying for Meds: No Currently Unemployed: No Education: Bachelor's Degree Living arrangements: alone Spiritual care concerns: No <Temitope Avila PA-C - Last Filed: 07/06/25 16:11> Exam Narrative: GENERAL: Well-appearing, well-nourished, and in no acute distress. HEAD: Normocephalic, atraumatic. ENT: Mucous membranes moist. CHEST: Clear to auscultation. No respiratory distress. HEART: Regular rate and rhythm. Normal peripheral pulses. ABDOMEN: Soft, nontender, nondistended. EXTREMITIES: Normal range of motion. No edema. SKIN: Warm, dry, no rash. NEURO: Alert and oriented x3. PSYCH: Normal mood and affect. <Jovanny Jerome MD - Last Filed: 07/06/25 21:53> Course Course Emergency Course: Reports improvement of his headache and tingling and now that he has had potassium and magnesium. He has been on a thiazide diuretic. It may be time to discontinue this. Will plan admission for observation to the hospitalist service. <Jovanny Jerome MD - Last Filed: 07/06/25 21:53> Vital Signs Vital signs: Vital Signs Temperature 96.8 F L 07/06/25 15:47 Pulse Rate 86 07/06/25 15:47 Respiratory Rate 18 07/06/25 15:47 Blood Pressure 141/85 H 07/06/25 15:47 Pulse Oximetry 97 07/06/25 15:47 Oxygen Delivery Room Air 07/06/25 15:47 Temperature 96.8 F L 07/06/25 15:47 Pulse Rate 75 07/06/25 21:31 Respiratory Rate 18 07/06/25 21:31 Blood Pressure 174/84 H 07/06/25 21:31 Pulse Oximetry 95 07/06/25 21:31 Oxygen Delivery Room Air 07/06/25 15:47 <Temitope Avila PA-C - Last Filed: 07/06/25 16:11> Vital Signs Temperature 96.8 F L 07/06/25 15:47 Pulse Rate 86 07/06/25 15:47 Respiratory Rate 18 07/06/25 15:47 Blood Pressure 141/85 H 07/06/25 15:47 Pulse Oximetry 97 07/06/25 15:47 Oxygen Delivery Room Air 07/06/25 15:47 Temperature 96.8 F L 07/06/25 15:47 Pulse Rate 75 07/06/25 21:31 Respiratory Rate 18 07/06/25 21:31 Blood Pressure 174/84 H 07/06/25 21:31 Pulse Oximetry 95 07/06/25 21:31 Oxygen Delivery Room Air 07/06/25 15:47 <Jovanny Jerome MD - Last Filed: 07/06/25 21:53> MDM - Recheck/Abnormal Lab/Rx MDM Narrative Medical decision making narrative: MSE by SEBASTIAN in triage <JORGE Barker Last Filed: 07/06/25 16:11> Lab Data Result diagrams: 07/06/25 15:58 07/06/25 15:58 <JORGE Barker Last Filed: 07/06/25 16:11> Labs: Lab Results 07/06/25 Range/Units 15:58 WBC 7.2 (4.5-10.0) K/mm3 RBC 4.33 L (4.6-6.20) M/mm3 Hgb 12.4 L (14.0-18.0) g/dL Hct 37.8 L (42.0-52.0) % MCV 87.3 (80-100) fl MCH 28.6 (26-34) pg MCHC 32.8 (32-36) g/dl RDW 15.3 H (11.5-14.5) % Plt Count 318 (150-375) k/mm3 MPV 8.5 (7.4-10.4) fl Immature Gran % (Auto) 0.3 (0-0.5) % Neut % (Auto) 64.4 (45.5-73.1) % Lymph % (Auto) 24.8 (18.3-44.2) % [place] % (Auto) 8.3 (2.6-8.5) % Eos % (Auto) 1.4 (0-4.4) % Baso % (Auto) 0.8 (0.2-1.2) % Lymph # (Auto) 1.79 (0.9-3.2) K/mm3 [place] # (Auto) 0.6 (0.1-0.6) K/mm3 Eos # (Auto) 0.1 (0-0.3) K/mm3 Baso # (Auto) 0.1 (0.0-0.1) K/mm3 Abs Immat Gran (auto) 0.02 (0.00-0.031) K/mm3 Absolute Neuts (auto) 4.7 (1.3-6.7) K/mm3 Absolute Nucleated RBC 0.000 (0.0-0.012) K/mm3 Nucleated RBC % 0.0 (0.0-0.2) % Sodium 135 L (137-145) mmol/L Potassium 2.2 L* (3.4-5.0) mmol/L Chloride 93 L (98-107) mmol/L Carbon Dioxide 34 H (22-30) mmol/L Anion Gap 8 (4-12) mmol/L BUN 8 L (9-20) mg/dL Creatinine 0.99 (0.7-1.3) mg/dL Estim Creat Clear Calc 52 ml/min Estimated GFR > 60 (59 - ) Glucose 108 (65-110) mg/dL Calcium 8.9 (8.4-10.2) mg/dL Magnesium 0.9 L (1.6-2.3) mg/dL Total Bilirubin 0.8 (0.2-1.3) mg/dL AST 28 (17-59) U/L ALT 18 (6-50) U/L Alkaline Phosphatase 63 (38-126) U/L Total Protein 7.3 (6.3-8.2) g/dL Albumin 4.2 (3.5-5.1) g/dL <Temitope Avila PA-C - Last Filed: 07/06/25 16:11> Lab Results 07/06/25 Range/Units 15:58 WBC 7.2 (4.5-10.0) K/mm3 RBC 4.33 L (4.6-6.20) M/mm3 Hgb 12.4 L (14.0-18.0) g/dL Hct 37.8 L (42.0-52.0) % MCV 87.3 (80-100) fl MCH 28.6 (26-34) pg MCHC 32.8 (32-36) g/dl RDW 15.3 H (11.5-14.5) % Plt Count 318 (150-375) k/mm3 MPV 8.5 (7.4-10.4) fl Immature Gran % (Auto) 0.3 (0-0.5) % Neut % (Auto) 64.4 (45.5-73.1) % Lymph % (Auto) 24.8 (18.3-44.2) % [place] % (Auto) 8.3 (2.6-8.5) % Eos % (Auto) 1.4 (0-4.4) % Baso % (Auto) 0.8 (0.2-1.2) % Lymph # (Auto) 1.79 (0.9-3.2) K/mm3 [place] # (Auto) 0.6 (0.1-0.6) K/mm3 Eos # (Auto) 0.1 (0-0.3) K/mm3 Baso # (Auto) 0.1 (0.0-0.1) K/mm3 Abs Immat Gran (auto) 0.02 (0.00-0.031) K/mm3 Absolute Neuts (auto) 4.7 (1.3-6.7) K/mm3 Absolute Nucleated RBC 0.000 (0.0-0.012) K/mm3 Nucleated RBC % 0.0 (0.0-0.2) % Sodium 135 L (137-145) mmol/L Potassium 2.2 L* (3.4-5.0) mmol/L Chloride 93 L (98-107) mmol/L Carbon Dioxide 34 H (22-30) mmol/L Anion Gap 8 (4-12) mmol/L BUN 8 L (9-20) mg/dL Creatinine 0.99 (0.7-1.3) mg/dL Estim Creat Clear Calc 52 ml/min Estimated GFR > 60 (59 - ) Glucose 108 (65-110) mg/dL Calcium 8.9 (8.4-10.2) mg/dL Magnesium 0.9 L (1.6-2.3) mg/dL Total Bilirubin 0.8 (0.2-1.3) mg/dL AST 28 (17-59) U/L ALT 18 (6-50) U/L Alkaline Phosphatase 63 (38-126) U/L Total Protein 7.3 (6.3-8.2) g/dL Albumin 4.2 (3.5-5.1) g/dL <Jovanny Jerome MD - Last Filed: 07/06/25 21:53> Imaging Data Radiologist's impression: ITS Impressions Head CT 07/06/25 16:25 IMPRESSION: 1. Unchanged small old lacunar infarct in the right frontoparietal abraham radiata. No acute intracranial process. 2. Age-related changes including mild diffuse volume loss and mild scattered white matter hypoattenuation consistent with chronic small vessel ischemic disease. <Jovanny Jerome MD - Last Filed: 07/06/25 21:53> Discharge Plan Discharge Clinical Impression: Hypokalemia, Hypomagnesemia <Temitope Avila PA-C - Last Filed: 07/06/25 16:11> Patient Disposition: Still a Patient <Temitope Avila PA-C - Last Filed: 07/06/25 16:11> Condition: Stable <Temitope Avila PA-C - Last Filed: 07/06/25 16:11>
[2025-07-06 16:07] LABS: Hematocrit 37.8 % (42.0-52.0); Hemoglobin 12.4 g/dL (14.0-18.0); Immature Granulocyte Percent A 0.3 % (0-0.5); Lymphocytes Absolute Auto 1.79 K/mm3 (0.9-3.2); Mean Corpuscular HGB Conc 32.8 g/dl (32-36); Mean Corpuscular Hemoglobin 28.6 pg (26-34); Mean Corpuscular Volume 87.3 fl (80-100); Nucleated Red Blood Cells Absolute Auto 0.000 K/mm3 (0.0-0.012); Nucleated Red Blood Cells Perc 0.0 % (0.0-0.2); Platelet Count Result 318 k/mm3 (150-375); Red Blood Count 4.33 M/mm3 (4.6-6.20); White Blood Count 7.2 K/mm3 (4.5-10.0)
[2025-07-06 16:21] LABS: Alanine Aminotransferase 18 U/L (6-50); Albumin Level 4.2 g/dL (3.5-5.1); Alkaline Phosphatase 63 U/L (38-126); Anion Gap 8 mmol/L (4-12); Aspartate Amino Transferase 28 U/L (17-59); Bilirubin,Total 0.8 mg/dL (0.2-1.3); Blood Urea Nitrogen 8 mg/dL (9-20); Calcium 8.9 mg/dL (8.4-10.2); Carbon Dioxide 34 mmol/L (22-30); Chloride 93 mmol/L (98-107); Estimated CRCL calculation 52 ml/min; Estimated Glomerular Filt Rate > 60; Glucose 108 mg/dL (65-110); Magnesium 0.9 mg/dL (1.6-2.3); Potassium 2.2 mmol/L (3.4-5.0); Sodium 135 mmol/L (137-145); Total Protein 7.3 g/dL (6.3-8.2)
[2025-07-06] MEDS: POTASSIUM CHLORIDE 20 MEQ ER TABLET 40 MEQ PO ×2 (16:41→21:09)
[2025-07-06] MEDS: MAGNESIUM SULF 2 GM/WATER 50ML 2 GM/50 ML BAG IVPB ×2 (16:46→21:10)
[2025-07-06] MEDS: POTASSIUM CHLORIDE INJ 40 MEQ in SODIUM CHLORIDE 0.9% IV 500 ML 130 MEQ IVPB (17:07)
[2025-07-07] VITALS (10 sets, daily range): BP systolic 138–144; BP diastolic 66–91; PULSE 55–77; RESP 16–18; TEMP 36.3–36.9; O2SAT 96–100
[2025-07-07 01:08] LABS: Anion Gap 3 mmol/L (4-12); Blood Urea Nitrogen 6 mg/dL (9-20); Calcium 8.5 mg/dL (8.4-10.2); Carbon Dioxide 35 mmol/L (22-30); Chloride 97 mmol/L (98-107); Estimated CRCL calculation 54 ml/min; Estimated Glomerular Filt Rate > 60; Glucose 119 mg/dL (65-110); Sodium 135 mmol/L (137-145)
[2025-07-07 01:10] LABS: Potassium 2.6 mmol/L (3.4-5.0)
[2025-07-07] MEDS: POTASSIUM CHLORIDE 20 MEQ ER TABLET 80 MEQ PO (02:36)
--- NOTE | 2025-07-07 05:18 | PM.IMHP ---
H&P: HPI History of Present Illness Date/Time: 07/07/25 05:18 Chief Complaint: Abnormal potassium and magnesium on outpatient labs Narrative: 74-year-old male with a past medical history of CVA, essential hypertension, GERD, peripheral neuropathy and chronic hearing loss who presented to the ER after labs obtained during routine physical and primary care physician's office returned with hypo magnesemia and hypo Emilee Donna. The patient denies having any associated symptoms of tachycardia, palpitations. He has chronic peripheral neuropathy but denies any increased numbness or tingling. He has not had any paresthesias. He states that about 2 months ago he had 6 weeks of frequent diarrheal stools. For the last week to week and a half his stools have still been soft but no longer diarrheal. He has had not had any changes in his appetite. He denies any recent changes in his medications. During the interview the patient did have an [id number] amount of difficulty with word finding. He states that he has been having difficulty with word finding for about 1 month to 1.5 months but the difficulty with word finding started suddenly back then and has not worsened since then. He denies any recent head injury. He has been having intermittent right parietal headaches on and off for about 3 months. He had a CT scan in the ER that was negative for acute process. He does not currently have a headache. He denies any double vision blurred vision. Labs in the ER confirmed hypokalemia and hypo magnesemia. The patient received supplementation in the ER and was admitted to telemetry for further monitoring. Review of Systems Review of Systems: 12 systems were reviewed with pertinent positives and negatives per HPI. Except as documented in the HPI, all other systems were reviewed and are negative. [facility] Past Medical History Medical History (Updated 07/07/25 @ 08:05 by Meka Matta DO) Peripheral neuropathy History of CVA (cerebrovascular accident) Small old lacunar infarct right frontal parietal abraham radiata on a CT demonstrates old CVA with finding on CT scan as far back as 2012 History of colon polyps Hypovitaminosis D BPH (benign prostatic hyperplasia) Retained myringotomy tube in right ear Mixed hearing loss, bilateral Chronic nonallergic rhinitis Emphysema lung DARYN (obstructive sleep apnea) Does not wear CPAP GERD (gastroesophageal reflux disease) Lung nodule Mixed hyperlipidemia Essential hypertension Surgical History Surgical History (Updated 07/07/25 @ 08:00 by Meka Matta DO) History of tonsillectomy and adenoidectomy Status post cataract extraction of both eyes with insertion of intraocular lens History of colonoscopy with polypectomy History of colon resection Due to diverticulitis History of appendectomy Family History Family History Mother Depression Family history of Alzheimer's disease Sibling Family history of arthritis Malignant neoplasm of prostate Father Family history of Alzheimer's disease Social History Social History (Updated 07/07/25 @ 07:58 by Meka Matta DO) Social History: He lives in his own home. He has been since 2017. Prior to his status they been for approximately 27 years. He worked at [employer] and served in [employer] for 5 years. He smoked 0.5 packs of cigarettes per day for about 10 years prior to quitting. He drinks 2-3 alcoholic beverages each week when he goes out to dinner with family. He denies illicit substance use. Code status: DNR/DNI per patient request Surrogate decision maker: Angely (Oldest daughter) Smoking packs per day: 0.5 Smoking cigarettes per day: 10.0 Years smoked: 10 Smoking pack-years: 5.00 Smoking status: Former smoker Tobacco type: cigars Second hand tobacco smoke exposure: No Smoking end date: 09/24/19 Alcohol intake: never Drinks per week: 2 Alcohol use details: social Substance use: never Substance use type: does not use Lack of Transportation: No Lack of Food: Never True Current Housing: I Have Housing Concerned About Future Housing: No Difficulty Paying Gas/Electric Bills: No Difficulty Paying for Meds: No Currently Unemployed: No Education: Associate Degree Difficulty w/ Childcare or Family Care: No Living arrangements: alone Spiritual care concerns: No Meds Home Medications and Allergies Home Medications ?Medication ?Instructions ?Recorded ?Confirmed ?Type aspirin 81 mg tablet,delayed 81 mg PO DAILY 08/04/19 07/06/25 History release cholecalciferol (vitamin D3) 25 1,000 unit PO DAILY 08/04/19 07/06/25 History mcg (1,000 unit) capsule multivitamin 1 tablet PO DAILY 06/23/24 07/06/25 History lisinopril 20 mg tablet See Rx Instructions .Route 07/16/24 07/06/25 Rx .COMPLEX #90 tabs rosuvastatin 10 mg tablet See Rx Instructions .Route 07/16/24 07/06/25 Rx .COMPLEX #90 tabs hydrochlorothiazide 12.5 mg capsule See Rx Instructions .Route 03/09/25 07/06/25 Rx .COMPLEX #90 caps omeprazole 40 mg capsule,delayed 40 mg PO DAILY #90 caps 03/30/25 07/06/25 Rx release Allergies Allergy/AdvReac Type Severity Reaction Status Date / Time No Known Allergies Allergy Mild Verified 07/06/25 21:51 Vital Signs Vital Signs - 24 hr 07/06/25 15:47 07/06/25 16:50 07/06/25 16:50 Temperature 96.8 F L Pulse Rate 86 71 Respiratory Rate 18 18 17 Blood Pressure 141/85 H 148/86 H Pulse Oximetry 97 96 Oxygen Delivery Room Air 07/06/25 18:44 07/06/25 19:54 07/06/25 21:29 Temperature Pulse Rate 79 71 75 Respiratory Rate 17 15 18 Blood Pressure 135/83 137/89 174/84 H Pulse Oximetry 96 93 95 Oxygen Delivery 07/06/25 21:31 07/06/25 23:31 07/07/25 00:00 Temperature 98.3 F Pulse Rate 75 86 58 L Respiratory Rate 18 18 Blood Pressure 174/84 H 151/88 H Pulse Oximetry 95 98 Oxygen Delivery 07/07/25 04:00 Temperature Pulse Rate 58 L Respiratory Rate Blood Pressure Pulse Oximetry Oxygen Delivery Exam Narrative: Weight 72.1 kg BMI 24.9 Const: Other: No acute distress, well-developed, well-nourished HENMT: Other: Upper and lower dentures in place, Eyes: Other: Pupils are equal and reactive with evidence of bilateral lens implants, no scleral icterus, no conjunctival pallor Neck: Other: No JVD, no lymphadenopathy Resp: Other: Clear to auscultation bilaterally, no increased work of breathing Cardio: Other: Regular rate, regular rhythm, 2+ bilateral radial pedal pulses, no JVD GI: Other: Soft, nontender, nondistended, positive bowel sounds Skin: Other: No jaundice, no pallor Neuro: Other: Patient is chronically hard of hearing but alert orient x4, speech is clear, no facial asymmetry, besides hearing loss loss cranial nerves appear to be grossly intact, patient has no localizing neurologic deficits but does have some difficulty with word finding, he has normal gait Extrem: Other: spud sorter strength bilaterally 5/5 strength on plantar and dorsiflexion bilaterally Psych: Other: Appropriate mood and affect, pleasant and cooperative, judgment and insight intact H&P: Results Labs Labs: Laboratory Tests 07/06/25 15:58 07/07/25 00:41 07/06/25 07/07/25 15:58 00:41 WBC 7.2 RBC 4.33 L Hgb 12.4 L Hct 37.8 L MCV 87.3 MCH 28.6 MCHC 32.8 RDW 15.3 H Plt Count 318 MPV 8.5 Immature Gran % (Auto) 0.3 Neut % (Auto) 64.4 Lymph % (Auto) 24.8 [place] % (Auto) 8.3 Eos % (Auto) 1.4 Baso % (Auto) 0.8 Lymph # (Auto) 1.79 [place] # (Auto) 0.6 Eos # (Auto) 0.1 Baso # (Auto) 0.1 Abs Immat Gran (auto) 0.02 Absolute Neuts (auto) 4.7 Absolute Nucleated RBC 0.000 Nucleated RBC % 0.0 Sodium 135 L 135 L Potassium 2.2 L* 2.6 L* Chloride 93 L 97 L Carbon Dioxide 34 H 35 H Anion Gap 8 3 L BUN 8 L 6 L Creatinine 0.99 0.95 Estim Creat Clear Calc 52 54 Estimated GFR > 60 > 60 Glucose 108 119 H Calcium 8.9 8.5 Magnesium 0.9 L Total Bilirubin 0.8 AST 28 ALT 18 Alkaline Phosphatase 63 Total Protein 7.3 Albumin 4[address] 07/06/25 16:25 IMPRESSION: 1. Unchanged small old lacunar infarct in the right frontoparietal abraham radiata. No acute intracranial process. 2. Age-related changes including mild diffuse volume loss and mild scattered white matter hypoattenuation consistent with chronic small vessel ischemic disease. Test Date: 2025-07-06 15:54:15 Measurements Intervals [place] Rate: 76 P: 17 ME: 185 QRS: -31 QRSD: 97 T: 38 QT: 405 QTc: 458 Interpretive Statements SINUS RHYTHM LEFT AXIS DEVIATION INCOMPLETE RIGHT BUNDLE BRANCH BLOCK BASELINE ARTIFACT- I, II, III, AVR, AVL, AVF, V1-V6 BORDERLINE ECG No previous ECG available for comparison Assessment and Plan Assessment and plan (1) Hypomagnesemia: Code(s): E83.42 - Hypomagnesemia Status: Acute (2) Hypokalemia: Code(s): E87.6 - Hypokalemia Status: Acute (3) Persistent headaches: Code(s): R51.9 - Headache, unspecified Status: Acute (4) Essential hypertension: Code(s): I10 - Essential (primary) hypertension Status: Acute (5) GERD (gastroesophageal reflux disease): Qualifiers: Esophagitis presence: with esophagitis Qualified Code(s): K21.0 - Gastro-esophageal reflux disease with esophagitis Code(s): K21.9 - Gastro-esophageal reflux disease without esophagitis Status: Acute Plan Patient presented with incidental findings hypokalemia and hypo magnesium E on outpatient labs. The patient was going for his routine health appointment. Is hypo magnesium hypo Emilee Donna probably resulted diarrhea that he had been having several weeks ago. The patient had received total of 80 p.o. potassium in the ER and 40 IV. He received 2 g magnesium sulfate rider in the ER I requested a 2nd 2 g dose be given for a total 4. The patient's labs were repeated around midnight and demonstrated slight improvement in potassium. Subsequently and a additional 80 mEq of potassium chloride was given. With the next lab check phosphorus level was obtained which was also low. So this morning the patient will receive an additional 40 mEq of p.o. potassium and 40 mEq of potassium phosphate x1. Will repeat BMP in the afternoon and provide further replacement if needed. Will continue to monitor patient on telemetry given is electrolyte derangement. Will hold hydrochlorothiazide and Protonix as Protonix can be associated with some component of hypokalemia. If patient develops recurrent loose stools will send stools for studies but he has not had any recent diarrhea in the last week or so. The patient also reports that he has been having intermittent but frequent headaches in the right parietal region for [address] of the brain demonstrated no acute process. Will provide Tylenol as needed for mild pain and [place] as needed for moderate to severe pain. Patient does have some difficulty with word finding but he states that this is been ongoing for 1 month or more and has not changed in severity or intensity.. He states that is not in acute change. He is not having any localizing weakness. His gait is normal and has no localizing neurologic deficits. I suspect patient may have had a CVA at that time. But there is no indication for MRI or further evaluation of this given the longevity and stability of symptoms. Quality VTE Prophylaxis VTE prophylaxis: pharmacologic ordered (Lovenox 40 mg subQ daily.) Hospitalist [facility] Advance Care Plan I have confirmed that the patient's Advanced Care Plan is present, code status is documented, or surrogate decision maker is listed in patient medical record.: Yes Medication Reconciliation I have utilized all available resources to obtain, update and review the patients current medications (includes all prescriptions, OTC, herbals, cannabis, and nutritional supplements).: Yes
[2025-07-07 06:38] LABS: Anion Gap 4 mmol/L (4-12); Blood Urea Nitrogen 6 mg/dL (9-20); Calcium 8.4 mg/dL (8.4-10.2); Carbon Dioxide 31 mmol/L (22-30); Chloride 100 mmol/L (98-107); Estimated CRCL calculation 59 ml/min; Estimated Glomerular Filt Rate > 60; Glucose 106 mg/dL (65-110); Magnesium 2.2 mg/dL (1.6-2.3); Potassium 2.8 mmol/L (3.4-5.0); Sodium 135 mmol/L (137-145)
[2025-07-07] MEDS: ASPIRIN 81 MG ENTERIC TABLET PO (08:39)
[2025-07-07] MEDS: ROSUVASTATIN 10 MG TABLET PO (08:39)
[2025-07-07] MEDS: POTASSIUM CHLORIDE 20 MEQ ER TABLET 40 MEQ PO ×2 (08:39→20:04)
[2025-07-07] MEDS: POTASSIUM PHOS,M-BASIC-D-BASIC 40 MMOL in SODIUM CHLORIDE 0.9% IV 250 ML 43.89 MMOL IVPB (08:39)
[2025-07-07] MEDS: CHOLECALCIFEROL (VITAMIN D3) 25 MCG (1,000 UNITS) TABLET PO (08:39)
[2025-07-07] MEDS: ACETAMINOPHEN 325 MG TABLET 650 MG PO (08:46)
[2025-07-07] MEDS: ENOXAPARIN 40 MG/0.4 ML SYRINGE SUB-Q (08:47)
[2025-07-07 13:58] LABS: Anion Gap 8 mmol/L (4-12); Blood Urea Nitrogen 7 mg/dL (9-20); Calcium 8.7 mg/dL (8.4-10.2); Carbon Dioxide 32 mmol/L (22-30); Chloride 100 mmol/L (98-107); Estimated CRCL calculation 57 ml/min; Estimated Glomerular Filt Rate > 60; Glucose 115 mg/dL (65-110); Potassium 3.9 mmol/L (3.4-5.0); Sodium 140 mmol/L (137-145)
[2025-07-07 14:46] LABS: Magnesium 2.3 mg/dL (1.6-2.3)
--- NOTE | 2025-07-07 18:39 | P.PNIM_ITS ---
Progress Note: A&P Assessment and Plan (1) Hypomagnesemia: Code(s): E83.42 - Hypomagnesemia Status: Acute (2) Hypokalemia: Code(s): E87.6 - Hypokalemia Status: Acute (3) Persistent headaches: Code(s): R51.9 - Headache, unspecified Status: Acute (4) Essential hypertension: Code(s): I10 - Essential (primary) hypertension Status: Acute (5) GERD (gastroesophageal reflux disease): Qualifiers: Esophagitis presence: with esophagitis Qualified Code(s): K21.0 - Gastro-esophageal reflux disease with esophagitis Code(s): K21.9 - Gastro-esophageal reflux disease without esophagitis Status: Acute Plan Patient presented with incidental findings hypokalemia and hypo magnesium E on outpatient labs. The patient was going for his routine health appointment. Is hypo magnesium hypo Emliee Donna probably resulted diarrhea that he had been having several weeks ago. The patient had received total of 80 p.o. potassium in the ER and 40 IV. He received 2 g magnesium sulfate rider in the ER I requested a 2nd 2 g dose be given for a total 4. The patient's labs were repeated around midnight and demonstrated slight improvement in potassium. Subsequently and a additional 80 mEq of potassium chloride was given. With the next lab check phosphorus level was obtained which was also low. So this morning the patient will receive an additional 40 mEq of p.o. potassium and 40 mEq of potassium phosphate x1. Will repeat BMP in the afternoon and provide further replacement if needed. Will continue to monitor patient on telemetry given is electrolyte derangement. Will hold hydrochlorothiazide and Protonix as Protonix can be associated with some component of hypokalemia. If patient develops recurrent loose stools will send stools for studies but he has not had any recent diarrhea in the last week or so. The patient also reports that he has been having intermittent but frequent headaches in the right parietal region for [address] of the brain demonstrated no acute process. Will provide Tylenol as needed for mild pain and Malden as needed for moderate to severe pain. Patient does have some difficulty with word finding but he states that this is been ongoing for 1 month or more and has not changed in severity or intensity.. He states that is not in acute change. He is not having any localizing weakness. His gait is normal and has no localizing neurologic deficits. I suspect patient may have had a CVA at that time. But there is no indication for MRI or further evaluation of this given the longevity and stability of symptoms. patient was found to have hypokalemia on his routine labs, patient denies any CP, dizziness, or SOB, patient had been having recurrent diarrhea and loose stool, most lilkel cause of his low potassium, his stool are more normal, patient is supplement and his potassium is trending up 3.9 compared to 2.2 upon arrival, will supplement, and monitor, his daughter is present and gave updates Subjective Date/time seen: 07/07/25 18:39 Interval history: patient was found to have hypokalemia on his routine labs, patient denies any CP, dizziness, or SOB, patient had been having recurrent diarrhea and loose stool, most lilkel cause of his low potassium, his stool are more normal, patient is supplement and his potassium is trending up 3.9 compared to 2.2 upon arrival, will supplement, and monitor, his daughter is present and gave updates Review of Systems Review of Systems: 12 systems were reviewed with pertinent positives and negatives per HPI. Except as documented in the HPI, all other systems were reviewed and are negative. Exam Narrative: Patient is comfortable, NAD HEENT: eyes are clear and none icteric LUNGS:CTA HEART: RR S1S2 ABD: BS+, Soft and nontender Lower extremities: no edema SKIN: nonjaundiced Neuro: grossly intact. Objective Data Vital Signs Vital Signs: Vital Signs - 24 hr 07/06/25 18:44 07/06/25 19:54 07/06/25 21:29 Temperature Pulse Rate 79 71 75 Respiratory Rate 17 15 18 Blood Pressure 135/83 137/89 174/84 H Pulse Oximetry 96 93 95 Oxygen Delivery 07/06/25 21:31 07/06/25 23:31 07/07/25 00:00 Temperature 36.8 C Pulse Rate 75 86 58 L Respiratory Rate 18 18 Blood Pressure 174/84 H 151/88 H Pulse Oximetry 95 98 Oxygen Delivery 07/07/25 04:00 07/07/25 06:00 07/07/25 08:00 Temperature 36.3 C L Pulse Rate 58 L 66 Respiratory Rate 18 Blood Pressure 144/76 H Pulse Oximetry 96 Oxygen Delivery Room Air 07/07/25 13:43 Temperature 36.8 C Pulse Rate 66 Respiratory Rate 16 Blood Pressure 138/66 Pulse Oximetry 100 Oxygen Delivery Intake/Output Intake/Output: Intake & Output 07/04/25 07/05/25 07/06/25 07/07/25 23:59 23:59 23:59 23:59 Intake Total 574.2 570 Balance 574.2 570 Meds/Results Medications: Active Medications Generic Name Dose Route Start Last Admin Trade Name Freq PRN Reason Stop Dose Admin Acetaminophen 650 mg 07/06/25 20:42 07/07/25 08:46 Acetaminophen 325 Mg Tablet PO 650 mg Q4H PRN Administration Mild Pain (1-3) or Fever Hydrocodone Bitart/Acetaminophen 1 tab 07/07/25 05:19 Hydrocodone/Acetaminophen (*Crx) 5-325 Mg Tablet PO Q6H PRN Pain Rated 4-6 Aspirin 81 mg 07/07/25 09:00 07/07/25 08:39 Aspirin 81 Mg Enteric Tablet PO 81 mg DAILY BAILEY Administration Calcium Carbonate 200 mg 07/07/25 02:02 Calcium Carbonate (Tums) 500 Mg (200 Mg Elemental) PO Q6H PRN Indigestion Enoxaparin Sodium 40 mg 07/07/25 09:00 07/07/25 08:47 Enoxaparin 40 Mg/0.4 Ml Syringe SUB-Q 40 mg DAILY BAILEY Administration Lisinopril 20 mg 07/07/25 09:00 07/07/25 08:39 Lisinopril 20 Mg Tablet PO 20 mg DAILY BAILEY Administration Ondansetron HCl 4 mg 07/06/25 20:42 Ondansetron Inj 4 Mg/2 Ml Vial IV PUSH Q4H PRN Nausea Rosuvastatin Calcium 10 mg 07/07/25 09:00 07/07/25 08:39 Rosuvastatin 10 Mg Tablet PO 10 mg DAILY BAILEY Administration Vitamin D 25 mcg 07/07/25 09:00 07/07/25 08:39 Cholecalciferol (Vitamin D3) 25 Mcg (1,000 Units) Tablet PO 25 mcg DAILY BAILEY Administration Radiology Results: ITS Impressions Head CT 07/06/25 16:25 IMPRESSION: 1. Unchanged small old lacunar infarct in the right frontoparietal abraham radiata. No acute intracranial process. 2. Age-related changes including mild diffuse volume loss and mild scattered white matter hypoattenuation consistent with chronic small vessel ischemic disease. Labs Labs: Laboratory Results - last 24 hr 07/07/25 07/07/25 07/07/25 00:41 05:47 13:02 Sodium 135 L 135 L 140 Potassium 2.6 L* 2.8 L* 3.9 Chloride 97 L 100 100 Carbon Dioxide 35 H 31 H 32 H Anion Gap 3 L 4 8 BUN 6 L 6 L 7 L Creatinine 0.95 0.87 0.90 Estim Creat Clear Calc 54 59 57 Estimated GFR > 60 > 60 > 60 Glucose 119 H 106 115 H Calcium 8.5 8.4 8.7 Phosphorus 2.2 L Magnesium 2.2 2.3 Quality VTE Prophylaxis VTE prophylaxis: pharmacologic ordered (Lovenox 40 mg subQ daily.)
[2025-07-08 04:00] VITALS: PULSE 79
[2025-07-08 05:38] LABS: Hematocrit 34.6 % (42.0-52.0); Hemoglobin 11.2 g/dL (14.0-18.0); Mean Corpuscular HGB Conc 32.4 g/dl (32-36); Mean Corpuscular Hemoglobin 29.2 pg (26-34); Mean Corpuscular Volume 90.1 fl (80-100); Platelet Count Result 291 k/mm3 (150-375); Red Blood Count 3.84 M/mm3 (4.6-6.20); White Blood Count 6.1 K/mm3 (4.5-10.0)
[2025-07-08 05:59] LABS: Anion Gap 8 mmol/L (4-12); Blood Urea Nitrogen 6 mg/dL (9-20); Calcium 8.3 mg/dL (8.4-10.2); Carbon Dioxide 27 mmol/L (22-30); Chloride 103 mmol/L (98-107); Estimated CRCL calculation 61 ml/min; Estimated Glomerular Filt Rate > 60; Glucose 102 mg/dL (65-110); Magnesium 1.9 mg/dL (1.6-2.3); Potassium 3.2 mmol/L (3.4-5.0); Sodium 138 mmol/L (137-145)
[2025-07-08 06:00] VITALS: BP 148/83; PULSE 88; RESP 18; TEMP 36.4; O2SAT 97
[2025-07-08 08:00] VITALS: PULSE 76
[2025-07-08] MEDS: ENOXAPARIN 40 MG/0.4 ML SYRINGE SUB-Q (08:53)
[2025-07-08] MEDS: ASPIRIN 81 MG ENTERIC TABLET PO (08:53)
[2025-07-08] MEDS: POTASSIUM CHLORIDE 20 MEQ PACKET (FOR LIQUID) 40 MEQ PO (08:53)
[2025-07-08] MEDS: ROSUVASTATIN 10 MG TABLET PO (08:53)
[2025-07-08] MEDS: CHOLECALCIFEROL (VITAMIN D3) 25 MCG (1,000 UNITS) TABLET PO (08:53)
[2025-07-08] MEDS: LOPERAMIDE HCL 2 MG CAPSULE PO (09:08)
[2025-07-08 11:24] LABS: Anion Gap 6 mmol/L (4-12); Blood Urea Nitrogen 4 mg/dL (9-20); Calcium 8.6 mg/dL (8.4-10.2); Carbon Dioxide 26 mmol/L (22-30); Chloride 103 mmol/L (98-107); Estimated CRCL calculation 63 ml/min; Estimated Glomerular Filt Rate > 60; Glucose 95 mg/dL (65-110); Potassium 3.7 mmol/L (3.4-5.0); Sodium 135 mmol/L (137-145)
[2025-07-08 12:00] VITALS: PULSE 79
[2025-07-08 13:26] VITALS: BP 137/73; PULSE 81; RESP 16; TEMP 36.4; O2SAT 100
[2025-07-08] MEDS: POTASSIUM CHLORIDE 20 MEQ ER TABLET 40 MEQ PO (13:36)
[2025-07-08 13:44] VITALS: O2SAT 95
--- NOTE | 2025-07-12 15:19 | P.DS_ITS ---
DS: Admitting Diagnosis Discharge Date 07/08/25 Admitting Diagnosis Abnormal potassium and magnesium on outpatient labs DS: Discharge Diagnosis Discharge Diagnosis (1) Hypomagnesemia: Code(s): E83.42 - Hypomagnesemia Status: Acute (2) Hypokalemia: Code(s): E87.6 - Hypokalemia Status: Acute (3) Persistent headaches: Code(s): R51.9 - Headache, unspecified Status: Acute (4) Essential hypertension: Code(s): I10 - Essential (primary) hypertension Status: Acute (5) GERD (gastroesophageal reflux disease): Qualifiers: Esophagitis presence: with esophagitis Qualified Code(s): K21.0 - Gastro-esophageal reflux disease with esophagitis Code(s): K21.9 - Gastro-esophageal reflux disease without esophagitis Status: Acute Plan Patient presented with incidental findings hypokalemia and hypo magnesium E on outpatient labs. The patient was going for his routine health appointment. Is hypo magnesium hypo Emilee Donna probably resulted diarrhea that he had been having several weeks ago. The patient had received total of 80 p.o. potassium in the ER and 40 IV. He received 2 g magnesium sulfate rider in the ER I requested a 2nd 2 g dose be given for a total 4. The patient's labs were repeated around midnight and demonstrated slight improvement in potassium. Subsequently and a additional 80 mEq of potassium chloride was given. With the next lab check phosphorus level was obtained which was also low. So this morning the patient will receive an additional 40 mEq of p.o. potassium and 40 mEq of potassium phosphate x1. Will repeat BMP in the afternoon and provide further replacement if needed. Will continue to monitor patient on telemetry given is electrolyte derangement. Will hold hydrochlorothiazide and Protonix as Protonix can be associated with some component of hypokalemia. If patient develops recurrent loose stools will send stools for studies but he has not had any recent diarrhea in the last week or so. The patient also reports that he has been having intermittent but frequent headaches in the right parietal region for [address] of the brain demonstrated no acute process. Will provide Tylenol as needed for mild pain and Cornelia as needed for moderate to severe pain. Patient does have some difficulty with word finding but he states that this is been ongoing for 1 month or more and has not changed in severity or intensity.. He states that is not in acute change. He is not having any localizing weakness. His gait is normal and has no localizing neurologic deficits. I suspect patient may have had a CVA at that time. But there is no indication for MRI or further evaluation of this given the longevity and stability of symptoms. patient was found to have hypokalemia on his routine labs, patient denies any CP, dizziness, or SOB, patient had been having recurrent diarrhea and loose stool, most lilkel cause of his low potassium, his stool are more normal, patient is supplement and his potassium is trending up 3.9 compared to 2.2 upon arrival, will supplement, and monitor, his daughter is present and gave updates DS: Summary Hospital Course Hospital Course: Patient presented with incidental findings hypokalemia and hypo magnesium E on outpatient labs. The patient was going for his routine health appointment. Is hypo magnesium hypo Emilee Donna probably resulted diarrhea that he had been having several weeks ago. The patient had received total of 80 p.o. potassium in the ER and 40 IV. He received 2 g magnesium sulfate rider in the ER I requested a 2nd 2 g dose be given for a total 4. The patient's labs were repeated around midnight and demonstrated slight improvement in potassium. Subsequently and a additional 80 mEq of potassium chloride was given. With the next lab check phosphorus level was obtained which was also low. So this morning the patient will receive an additional 40 mEq of p.o. potassium and 40 mEq of potassium phosphate x1. Will repeat BMP in the afternoon and provide further replacement if needed. Will continue to monitor patient on telemetry given is electrolyte derangement. Will hold hydrochlorothiazide and Protonix as Protonix can be associated with some component of hypokalemia. If patient develops recurrent loose stools will send stools for studies but he has not had any recent diarrhea in the last week or so. The patient also reports that he has been having intermittent but frequent headaches in the right parietal region for [address] of the brain demonstrated no acute process. Will provide Tylenol as needed for mild pain and Cornelia as needed for moderate to severe pain. Patient does have some difficulty with word finding but he states that this is been ongoing for 1 month or more and has not changed in severity or intensity.. He states that is not in acute change. He is not having any localizing weakness. His gait is normal and has no localizing neurologic deficits. I suspect patient may have had a CVA at that time. But there is no indication for MRI or further evaluation of this given the longevity and stability of symptoms. patient was found to have hypokalemia on his routine labs, patient denies any CP, dizziness, or SOB, patient had been having recurrent diarrhea and loose stool, most lilkel cause of his low potassium, his stool are more normal, patient is supplement and his potassium is trending up 3.9 compared to 2.2 upon arrival, patient was given an addtional 40meq of potassium and will discharge patient today with potassium supplement and to recheck potassium his daughter is present and gave updates. Time Spent with Patient Time attestation: Total time spent providing and/or coordinating discharge services: Exam Narrative: Patient is comfortable, NAD HEENT: eyes are clear and none icteric LUNGS:CTA HEART: RR S1S2 ABD: BS+, Soft and nontender Lower extremities: no edema SKIN: nonjaundiced Neuro: grossly intact. Discharge Plan Discharge Attending physician on discharge: Meka Matta Consulting providers: Laith Kam; Sahil Luke Discharging Clinician: Shoaib Olsen Patient Disposition: Home Activity: as tolerated Diet: heart healthy Discharge Instructions: patient is scheduled to see his primary care tomorrow and will check his potassium, patient and his daughter are instructed if the patient has persistent diarrhea to go to nearest ER. Patient Instructions: Antibiotic Form Patient Language: Tunisian Stand Alone Forms: General Discharge Information Follow-up/Referrals: Tavo Ellison APRN [Primary Care Provider, Internal Medicine] Discharge Medications: New loperamide 2 mg Capsule 2 mg PO Q8HR PRN (Reason: Diarrhea) Qty: 20 0RF calcium carbonate 500 mg calcium (1,250 mg) Tablet,Chewable 200 mg PO Q6H PRN (Reason: Indigestion) Qty: 30 0RF potassium chloride 10 mEq capsule, extended release 10 meq PO DAILY Qty: 10 0RF Continued rosuvastatin 10 mg tablet See Rx Instructions .ROUTE .COMPLEX Qty: 90 3RF Dose Instruction: TAKE 1 TABLET BY MOUTH DAILY Rx Instructions: TAKE 1 TABLET BY MOUTH DAILY lisinopril 20 mg tablet See Rx Instructions .ROUTE .COMPLEX Qty: 90 3RF Dose Instruction: TAKE 1 TABLET BY MOUTH DAILY Rx Instructions: TAKE 1 TABLET BY MOUTH DAILY aspirin 81 mg tablet,delayed release (DR/EC) 81 mg PO DAILY cholecalciferol (vitamin D3) 1,000 unit capsule 1,000 unit PO DAILY multivitamin Tablet 1 tablet PO DAILY omeprazole 40 mg capsule,delayed release(DR/EC) 40 mg PO DAILY Qty: 90 3RF Date of admission: 07/07/25 17:32 Primary Care Provider: Tavo Ellison Admitting Provider: Meka Matta Attending physician on admission: Shoaib Olsen Condition: Stable
== END 2025-07-08 15:00 | disposition home or self-care (01) | DRG 641 ==
LOC: ANHED 19:13 → ANH3MED 21:16
PROVIDERS: Physician Assistant; Admitting Provider Internal Medicine; Emergency Provider Emergency Medicine; PCP Nurse Practitioner; Visit Provider Family Medicine
DX: E87.6 Hypokalemia (principal); E83.42 Hypomagnesemia; I10 Essential (primary) hypertension; J43.9 Emphysema, unspecified; K21.9 Gastro-esophageal reflux disease without esophagitis; E78.2 Mixed hyperlipidemia; R51.9 Headache, unspecified; G47.33 Obstructive sleep apnea (adult) (pediatric); Z79.82 Long term (current) use of aspirin; Z79.1 Long term (current) use of non-steroidal anti-inflammatories (NSAID); Z87.891 Personal history of nicotine dependence
CPT/HCPCS: 36415; 70450; 80048; 80053; 80061; 83036; 83735; 84100; 85025; 85027; 87045; 87046; 87427; 89055; 93005; 96365; 96366; 96368; 96372; 96375; 99285; A9270; G0378; J1650; J3475; J3480; J7040; J7050

== ENCOUNTER 2025-07-09 08:32 | Outpatient (CLI) | payer MEDICARE, SELFPAY ==
--- OUTSIDE RECORDS SUMMARY | 2010-08-15 08:15 | XMS_ITS | Continuity of Care Document ---
Author Organization [facility] Address [address] [place] [address] Phone Care Team Providers Care Candy Separator Hard Name Role Phone Pierre Velasquez Unavailable Unavailable Procedures Procedure Date Eye Exam Established Pt Ophthalmoscopy, Subsequent Eye Exam & Treatment Ophthalmoscopy, Subsequent Eye Exam Established Pt Advance Directives Directive Yes / No Effective Date File Name No Information Encounters Encounter Description Practice Location Reason(s) For Visit Diagnoses Date Provider Providers Copied on Encounter [facility], [address] [place] [address] [address], [place], [place], [id number], [place] tel:[phone] SEC [facility] No Information 2-201 0 Ron Jya. [address] [place], [address], [place]. tel:[phone] Referring Provider: Pierre Harrington, [address] [place], [address]. tel:[phone] [facility], [address] [place] [address] [address], [place], [place], [id number], [place] tel:[phone] SEC [facility] No Information 7-201 0 Ron Jay. [address] [place], [address], [place]. tel:[phone] Referring Provider: Bright Edmond OD A, [address], [place], [address]. tel:[phone] [facility], [address], [place], [place], [id number], [place] tel:[phone] SEC [facility] No Information 0 6-201 0 Edmond OD Bright. [address], [place], [address], [place]. tel:[phone] Referring Provider: Preet Hinkle [facility], [place], [address]. tel:[phone] Family History Family Member Type Diagnosis Age At Onset No Information Payers Payer name Insurance type Covered constitution party ID Authoriza tion(s) No Information Social History [...]
--- OUTSIDE RECORDS SUMMARY | 2025-07-09 08:45 | XMS_ITS | Patient Health Record ---
Author Organization [facility] [employer] Address [address] [facility] [address] [place] [address] Care Team Providers Care Powerhouse Operator Name Role Phone Alberto Burnett Unavailable [phone] Reason For Referral No Information Plan Of Treatment No Information
--- OUTSIDE RECORDS SUMMARY | 2025-07-09 08:45 | XMS_ITS | Clinical Summary ---
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 [place] [address] Charli Abrams MD [address] [place] [address] [phone] 08/06/2025 10:48 AM FUEL TRUCK DRIVER - 08/06/2025 12:33 PM FUEL TRUCK DRIVER Surgery [facility] [place] [address] Charli Abrams MD [facility] [place] [phone] LEFT TYMPANOPLASTY Scheduled Procedures Name Priority Associated Diagnoses Date/Ti me TYMPANOPLASTY TYMPANIC MEMBRANE PERFORATION, HEARING LOSS H72.92, H90.12 08/06/2025 10:48 AM FUEL TRUCK DRIVER Health Maintenance Due Date Last Done Comments Hepatitis C 1968 DTaP, Tdap and Td Vaccines ( 1 - Tdap) 1969 Pneumococcal Vaccine: 50+ Ye ars (1 of 1 - PCV) 1998 Zoster Vaccines (1 of 2) 1998 RSV Immunization or 60+ Years (1 - 1-dose 75+ series) 2023 COVID-19 Vaccine (2023-2 5 season) 2025 Influenza Adult (#1) 2025 Hepatitis A Vaccines Aged Out No long er eligible based on patient's age to complete this topic Meningococcal B Vaccine Aged Out No l onger eligible based on patient's age to complete this topic Meningococcal Vaccine Aged Out No patrick radha eligible based on patient's age to complete this topic RSV Immunizations Under 20 Months Aged Out No longer eligible based on patient's age to complete this topic Goals Goal Patient Goal Type Associated Problems Recent Progress Patient-Stated? Author Autogenerat ed Goal Care Plan Autogenerated Problem No Bhumika Mcpherson, RN Additional Health Concerns Active Problems Noted Date Diagnosed Date Autogenerated Problem 07/07/2025
[2025-07-09 11:13] LABS: Anion Gap 9 mmol/L (4-12); Blood Urea Nitrogen 5 mg/dL (9-20); Calcium 8.8 mg/dL (8.4-10.2); Carbon Dioxide 25 mmol/L (22-30); Chloride 104 mmol/L (98-107); Estimated Glomerular Filt Rate > 60; Glucose 86 mg/dL (65-110); Magnesium 1.8 mg/dL (1.6-2.3); Potassium 3.4 mmol/L (3.4-5.0); Sodium 138 mmol/L (137-145)
== END 2025-07-09 08:33 | disposition home or self-care (01) ==
PROVIDERS: PCP Nurse Practitioner; Visit Provider Family Medicine
DX: E87.6 Hypokalemia (principal); E83.42 Hypomagnesemia
CPT/HCPCS: 36415; 80048; 83735

== ENCOUNTER 2025-07-23 09:50 | Outpatient (CLI) | payer MEDICARE, SELFPAY ==
--- OUTSIDE RECORDS SUMMARY | 2010-08-15 08:15 | XMS_ITS | Continuity of Care Document ---
Author Organization [facility] Address [address] [place] [address] Phone Care Team Providers Care Certified Legal Investigator Name Role Phone Pierre Velasquez Unavailable Unavailable Procedures Procedure Date Eye Exam Established Pt Ophthalmoscopy, Subsequent Eye Exam & Treatment Ophthalmoscopy, Subsequent Eye Exam Established Pt Advance Directives Directive Yes / No Effective Date File Name No Information Encounters Encounter Description Practice Location Reason(s) For Visit Diagnoses Date Provider Providers Copied on Encounter [facility], [address] [place] [address] [address], [place], [place], [id number], [place] tel:[phone] SEC [facility] No Information 2-201 0 Ron Jay. [address] [place], [address], [place]. tel:[phone] Referring Provider: Pierre Harrington, [address] [place], [address]. tel:[phone] [facility], [address] [place] [address] [address], [place], [place], [id number], [place] tel:[phone] SEC [facility] No Information 7-201 0 Ron Jay. [address] [place], [address], [place]. tel:[phone] Referring Provider: Bright Edmond OD A, [address], [place], [address]. tel:[phone] [facility], [address], [place], [place], [id number], [place] tel:[phone] SEC [facility] No Information 0 6-201 0 Edmond OD Bright. [address], [place], [address], [place]. tel:[phone] Referring Provider: Preet Hinkle [facility], [place], [address]. tel:[phone] Family History Family Member Type Diagnosis Age At Onset No Information Payers Payer name Insurance type Covered republican ID Authoriza tion(s) No Information Social History Type Description Quantity Date Captured Comments Sex Male Smoking Status No Information Chief Complaint And Reason For Visit No Information Reason For Referral Reason For Referral No Information History Of Present Illness Encounter Date Complaint History Of Prese nt Illness No Information Functional Status Date Functional Assessmen t No Information Instructions Date Instruction Additional Infor mation No Information Assessments Type Assessment Date No Information Patient Care Teams Name Effective Dates (start - stop) Status Members No Information
[2025-07-23 10:37] LABS: Anion Gap 7 mmol/L (4-12); Blood Urea Nitrogen 12 mg/dL (9-20); Calcium 9.4 mg/dL (8.4-10.2); Carbon Dioxide 29 mmol/L (22-30); Chloride 102 mmol/L (98-107); Estimated Glomerular Filt Rate > 60; Glucose 97 mg/dL (65-110); Potassium 3.8 mmol/L (3.4-5.0); Sodium 138 mmol/L (137-145)
--- OUTSIDE RECORDS SUMMARY | 2025-07-23 10:41 | XMS_ITS | Patient Health Record ---
Author Organization [facility] [employer] Address [address] [facility] [address] [place] [address] Care Team Providers Care Chair And Couch Maker Name Role Phone Alberto Burnett Unavailable [phone] Reason For Referral No Information Plan Of Treatment No Information
== END 2025-07-23 09:51 | disposition home or self-care (01) ==
LOC: ANHLAB 09:51
PROVIDERS: PCP Nurse Practitioner; Visit Provider Nurse Practitioner
DX: E87.6 Hypokalemia (principal)
CPT/HCPCS: 36415; 80048